=== PATIENT | female | born 1980 | race Caucasian/White ===

== ENCOUNTER 2016-11-18 16:50 | Inpatient (IN) | payer OTHER ==
[~2016-11-18] VITALS: Ht 162.6 cm; Wt 74.8 kg
[2016-11-18] MEDS ORDERED: fentaNYL 100 mcg/2 mL IV ONE ×2 (17:30→19:30)
[2016-11-18] MEDS ORDERED: Famotidine 20 MG/ 2ML VIAL IVP ONE (17:30)
--- NOTE | 2016-11-18 17:30 | Emergency Room Report ---
History of Present Illness General Chief Complaint: Abnormal Labs Source: Patient Present Illness HPI The patient presents with severe abdominal pain and chest pain that began at 2 AM. She's also been vomiting. She's had loose stools that have been dark in color. She's been taking Pepto-Bismol and Pepcid without any relief. She's seen by urgent care center to us stating that they felt that she needed a CT scan and labs. She EKG done by them nose normal. Pain 8/10 RUQ and somewhat epigastric. Urine was dark today. Menses started today. Moved bowels 3 times today = dark (taking Peptobismol). She's been ill intermittently for 2 months. This is been fevers and vomiting. She did not receive a flu shot. Travel to [place] in September. Uncertain if hepatitis vaccinations. 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 Last Menstrual Period: 11/16/2016 Now: No : 0 Para: 0 Reviewed Nursing Documentation: PMH: Agreed, PSxH: Agreed Nursing Documentation-PMH Past Medical History: No Stated History Review of Systems All Other Systems: negative except mentioned in HPI Physical Exam Vital Signs Date Time Temp Pulse Resp B/P Pulse Ox O2 Delivery O2 Flow Rate FiO2 11/18/16 17:03 97.5 75 14 133/89 100 Room Air Sp02 EP Interpretation: reviewed, normal General Appearance: well appearing, no apparent distress, GCS 15 Head: normocephalic Eyes: bilateral eye EOMI, bilateral eye PERRL, bilateral eye scleral icterus ENT: dry mucus membranes Neck: supple Respiratory: lungs clear, normal breath sounds Cardiovascular #1: regular rate, rhythm Cardiovascular #2: 2+ radial (R) Gastrointestinal: normal inspection, normal bowel sounds, no mass, non- distended, no rebound, guarding, tenderness - RUQ Musculoskeletal: back normal, gait/station normal, normal range of motion Neurologic: alert, oriented x3, grossly normal Psychiatric: mood/affect normal Skin: normal inspection, warm/dry Medical Decision Making Diagnostic Impression: Primary Impression: Acute cholecystitis Additional Impressions: Elevated liver function tests Dehydration Vomiting Qualified Codes: R11.2 - Nausea with vomiting, unspecified ER Course Patient with severe upper abdominal pain. Ddx: pancreatitis, GERD, cholelithiasis, cholecyctitis, PUD amongst others. Urgent evaluation with labs , CT abdomen. Treatment with IV hydration, analgesia. Consideration of hepatitis, cholecystitis, cholelithiasis with elevated LFTs and bili. CT suggests acute cholecystitis. Pain improved. Contact Dr. Tinoco for consultation. Admit med Dr. Patterson. Laboratory Tests Test 11/18/16 17:24 White Blood Count 7.6 K/UL (4.8-10.8) Red Blood Count 4.82 M/UL (4.20-5.40) Hemoglobin 14.5 G/DL (12.0-16.0) Hematocrit 43.4 % (37.0-47.0) Mean Corpuscular Volume 90 FL (80-99) Mean Corpuscular Hemoglobin 30.2 PG (27.0-31.0) Mean Corpuscular Hemoglobin Concent 33.5 G/DL (32.0-36.0) Red Cell Distribution Width 11.1 % (11.6-14.8) L Platelet Count 317 K/UL (150-450) Mean Platelet Volume 7.0 FL (6.5-10.1) Neutrophils (%) (Auto) 65.4 % (45.0-75.0) Lymphocytes (%) (Auto) 24.8 % (20.0-45.0) Monocytes (%) (Auto) 8.3 % (1.0-10.0) Eosinophils (%) (Auto) 0.7 % (0.0-3.0) Basophils (%) (Auto) 0.7 % (0.0-2.0) Prothrombin Time 10.3 SEC (9.30-11.50) Prothrombin Time INR 1.0 (0.9-1.1) PTT 26 SEC (23-33) Urine Color Brown Urine Appearance Clear Urine pH 5 (4.5-8.0) Urine Specific [place] 1.020 (1.005-1.035) Urine Protein 1+ (NEGATIVE) H Urine Glucose (UA) Negative (NEGATIVE) Urine Ketones 1+ (NEGATIVE) H Urine Occult Blood 1+ (NEGATIVE) H Urine Nitrite Negative (NEGATIVE) Urine Bilirubin 2+ (NEGATIVE) H Urine Ictotest Negative Urine Urobilinogen 4 MG/DL (0.0-1.0) H Urine Leukocyte Esterase 1+ (NEGATIVE) H Urine RBC 0-2 /HPF (0 - 2) Urine WBC 2-4 /HPF (0 - 2) Urine Squamous Epithelial Cells Few /LPF (NONE/OCC) Urine Bacteria Few /HPF (NONE) Urine HCG, Qualitative Negative Sodium Level 141 mEQ/L (135-145) Potassium Level 3.8 mEQ/L (3.4-4.9) Chloride Level 98 mEQ/L (98-107) Carbon Dioxide Level 25 mEQ/L (20-30) Anion Gap 18 (5-15) H Blood Urea Nitrogen 9 mg/dL (7-23) Creatinine 0.9 mg/dL (0.5-0.9) Estimate Glomerular Filtration Rate > 60 mL/min (>60) Glucose Level 106 mg/dL (74-106) Calcium Level 9.4 mg/dL (8.6-10.2) Total Bilirubin 2.7 mg/dL (0.0-1.2) H Direct Bilirubin 2.2 mg/dL (0.1-0.3) H Aspartate Amino Transferase (AST) 270 U/L (5-40) H Alanine Aminotransferase (ALT) 186 U/L (3-33) H Alkaline Phosphatase 160 U/L (35-104) H Total Protein 7.0 g/dL (6.6-8.7) Albumin 4.4 g/dL (3.5-5.2) Globulin 2.6 g/dL Albumin/Globulin Ratio 1.6 (1.0-2.7) Lipase 52 U/L (< 60) EKG Diagnostic Results Rate: normal Rhythm: NSR ST Segments: no acute changes Other Impression Outside EKG reviewed Rhythm Strip Diag. Results EP Interpretation: yes Rhythm: NSR, no PVC's, no ectopy CT/MRI/US Diagnostic Results CT/MRI/US Diagnostic Results : Imaging Test Ordered: abd/pelvis Impression gall bladder inflammation with probable gall stones. Impression: Distended gallbladder with stones, somewhat thick wall, some pericholecystic edema. Findings raise concern for acute cholecystitis. If there is high clinical suspicion, consider hepatobiliary nuclear scan to confirm Dilated extrahepatic bile ducts. Downstream obstruction not completely excludable. Correlate with liver function tests Appendix, suspect postsurgical Diverticulosis without evidence of diverticulitis Splenic low attenuation lesion, probably a cyst Bilateral L5 spondylolysis, minimal L5 on S1 spondylolisthesis Last Vital Signs Date Time Temp Pulse Resp B/P Pulse Ox O2 Delivery O2 Flow Rate FiO2 11/18/16 17:03 97.5 75 14 133/89 100 Room Air Status: improved Disposition: ADMITTED INPATIENT Condition: Serious Tin Nolasco M.D. Nov 18, 2016 17:30
[2016-11-18 17:48] LABS: BASOPHILS % (AUTO) 0.7 % (0.0-2.0); EOSINOPHILS % (AUTO) 0.7 % (0.0-3.0); LYMPHOCYTES % (AUTO) 24.8 % (20.0-45.0); MEAN CORPUSCULAR HEMOGLOBIN 30.2 PG (27.0-31.0); MEAN CORPUSCULAR HGB CONC 33.5 G/DL (32.0-36.0); MEAN CORPUSCULAR VOLUME 90 FL (80-99); MONOCYTES % (AUTO) 8.3 % (1.0-10.0); NEUTROPHILS % (AUTO) 65.4 % (45.0-75.0); PLATELET COUNT 317 K/UL (150-450); RED BLOOD COUNT 4.82 M/UL (4.20-5.40); RED CELL DISTRIBUTION WIDTH 11.1 % (11.6-14.8); WHITE BLOOD COUNT 7.6 K/UL (4.8-10.8)
[2016-11-18 17:50] LABS: APPEARANCE,URINE CLEAR; KETONES,URINE 1+ (NEGATIVE); LEUKOCYTE ESTERASE ,URINE 1+ (NEGATIVE); NITRITE,URINE NEGATIVE (NEGATIVE); PH,URINE 5 (4.5-8.0); PROTEIN,URINE 1+ (NEGATIVE); UROBILINOGEN,URINE 4 MG/DL (0.0-1.0)
[2016-11-18 17:59] LABS: PROTHROMBIN TIME 10.3 SEC (9.30-11.50)
[2016-11-18 18:03] LABS: ALANINE AMINOTRANSFERASE 186 U/L (3-33); ALBUMIN/GLOBULIN RATIO 1.6 (1.0-2.7); ANION GAP 18 (5-15); ASPARTATE AMINO TRANSFERASE 270 U/L (5-40); CALCIUM 9.4 mg/dL (8.6-10.2); CARBON DIOXIDE 25 mEQ/L (20-30); CHLORIDE 98 mEQ/L (98-107); CREATININE 0.9 mg/dL (0.5-0.9); GLOMERULAR FILTRATION RATE > 60 mL/min (>60); HEMOLYSIS 0; LIPASE 52 U/L (< 60); POTASSIUM 3.8 mEQ/L (3.4-4.9); SODIUM 141 mEQ/L (135-145)
[2016-11-18 18:16] LABS: BILIRUBIN,DIRECT 2.2 mg/dL (0.1-0.3)
[2016-11-18 18:21] LABS: BACTERIA,URINE FEW /HPF; ICTOTEST NEGATIVE; RBC,URINE 0-2 /HPF (0 - 2); SQUAMOUS EPITHELIAL CELL,UR FEW /LPF (NONE/OCC)
[2016-11-18 18:24] VITALS: BP 121/76
[2016-11-18] MEDS ORDERED: metroNIDAZOLE 500mg 100 ML IVPB ONE (19:30)
[2016-11-18] MEDS ORDERED: Cefepime HCl 1 GM in D5W 55 ML IVPB ONE (19:30)
[2016-11-18] MEDS ORDERED: Cefepime 1gm vial ONE (19:59)
[2016-11-18] MEDS ORDERED: BUPROPION HCL75 MG PO (20:47)
[2016-11-18] MEDS ORDERED: LEVOTHYROXINE75 MCG ORAL (20:47)
[2016-11-18 20:59] VITALS: BP 114/72
[2016-11-18] MEDS ORDERED: Miralax 17gm pkt ORAL PRN (22:00)
[2016-11-18] MEDS ORDERED: Mylanta II UD 30ml ORAL PRN (22:00)
[2016-11-18] MEDS ORDERED: Nitroglycerin Subl 0.4mg tab (Bottle Of 25) SL PRN (22:15)
[2016-11-18] MEDS ORDERED: D5 1/2NS 1,000 ML IV SCH (22:30)
[2016-11-18] MEDS: Piperacillin/Tazobactam 3.375 GM in NS 110 ML IVPB SCH (22:36)
[2016-11-19] VITALS: BP 117/76
[2016-11-19] MEDS: Morphine Sulfate 2mg/ml Inj IVP PRN ×5 (00:25→21:19)
[2016-11-19 04:00] VITALS: BP 114/74
[2016-11-19 05:37] LABS: BASOPHILS % (AUTO) 0.8 % (0.0-2.0); MEAN CORPUSCULAR HEMOGLOBIN 31.3 PG (27.0-31.0); MEAN CORPUSCULAR HGB CONC 34.1 G/DL (32.0-36.0); MEAN CORPUSCULAR VOLUME 92 FL (80-99); MEAN PLATELET VOLUME 7.3 FL (6.5-10.1); MONOCYTES % (AUTO) 10.4 % (1.0-10.0); NEUTROPHILS % (AUTO) 47.9 % (45.0-75.0); PLATELET COUNT 243 K/UL (150-450); RED BLOOD COUNT 3.95 M/UL (4.20-5.40); RED CELL DISTRIBUTION WIDTH 11.3 % (11.6-14.8); WHITE BLOOD COUNT 5.5 K/UL (4.8-10.8)
[2016-11-19] MEDS: Piperacillin/Tazobactam 3.375 GM in NS 110 ML IVPB SCH ×3 (05:43→21:19)
[2016-11-19 06:05] LABS: ALANINE AMINOTRANSFERASE 240 U/L (3-33); ALBUMIN/GLOBULIN RATIO 1.7 (1.0-2.7); AMYLASE 31 U/L (10-110); ANION GAP 14 (5-15); ASPARTATE AMINO TRANSFERASE 300 U/L (5-40); CALCIUM 8.5 mg/dL (8.6-10.2); CARBON DIOXIDE 26 mEQ/L (20-30); CHLORIDE 99 mEQ/L (98-107); CREATININE 0.8 mg/dL (0.5-0.9); GLOMERULAR FILTRATION RATE > 60 mL/min (>60); HEMOLYSIS 2; LIPASE 39 U/L (< 60); POTASSIUM 3.7 mEQ/L (3.4-4.9); SODIUM 139 mEQ/L (135-145); TOTAL PROTEIN 5.7 g/dL (6.6-8.7)
[2016-11-19 06:21] LABS: BILIRUBIN,DIRECT 1.6 mg/dL (0.1-0.3)
[2016-11-19] MEDS: D5 1/2NS 1,000 ML IV SCH ×2 (07:00→14:27)
--- NOTE | 2016-11-19 07:01 | Consultation ---
History of Present Illness General Date patient seen: Nov 19, 2016 Chief Complaint: Abnormal Labs Present Illness HPI 36 F presented to ED complaining of abdominal pain. States that for a few months now she has had intermittent abdominal pain. Yesterday pain worsened. Feels like pain was generalized abdominal pain but mostly concentrated to the RUQ with radiation to her right upper back. Pain associated with nausea and emesis ( non bloody). Given these symptoms she came to ED for evaluation. Noted to have elevated t bili of 2.7. CT with gallstones. Surgery called to evaluate. Currently states pain slowly resolving. does not have n/v at this time. Allergies: Coded Allergies: SULFA (SULFONAMIDE ANTIBIOTICS) (Unverified Allergy, Unknown, 11/18/16) Uncoded Allergies: SULFA (Allergy, Unknown, Hives, 11/18/16) Medication History Scheduled Bupropion Hcl* (Bupropion Hcl*), 75 MG PO BID, (Reported) Levothyroxine Sodium* (Levothyroxine Sodium*), 75 MCG ORAL DAILY, (Reported) Patient History History Provided By: Patient Healthcare decision maker Resuscitation status Full Code Advanced Directive on File Past Medical/Surgical History Past Medical/Surgical History: (1) History of appendectomy (2) Hypothyroidism (3) Acute cholecystitis Review of Systems Constitutional: Denies: chills, fever, malaise, no symptoms, other, see HPI, sweats, weakness Eye: Denies: acuity changes, blurred vision, discharge, double vision, eye pain , no symptoms, nose congestion, nose pain, other, see HPI, tearing ENT: Denies: ear discharge, ear pain, hearing loss, mouth pain, nasal discharge , no symptoms, nose congestion, nose pain, other, see HPI, throat pain, throat swelling Respiratory: Denies: BYRNES, cough, no symptoms, orthopnea, other, see HPI, shortness of breath, sputum, stridor, wheezing Cardiovascular: Denies: PND, chest pain, edema, no symptoms, other, palpitations, see HPI, syncope Gastrointestinal: Reports: abdominal pain, nausea, see HPI, vomiting Genitourinary: Denies: discharge, dysuria, frequency, hematuria, incontinence, no symptoms, other, pain, retention, see HPI, urgency, vag bleed/dc Musculoskeletal: Denies: back pain, gout, joint pain, joint swelling, muscle pain, muscle stiffness, no symptoms, other, see HPI Skin: Denies: change in color, change in hair/nails, dryness, lesions, no symptoms, other, rash, see HPI Psychiatric: Denies: HI, SI, anxiety, depressed feelings, emotional problems, hallucinations, no symptoms, other, prior hx, see HPI Neurological: Denies: dizziness, focal weakness, headache, no symptoms, numbness, other, paresthesia, see HPI, seizure, syncope, tingling, tremors Endocrine: Denies: excessive sweating, flushing, increased thirst, increased urine, intolerance to temperature, no symptoms, other, see HPI, unexplained weight loss Hematologic/Lymphatic: Denies: anemia, blood clots, diathesis, easy bleeding, easy bruising, no symptoms, other, see HPI, swollen glands All Other Systems: negative except mentioned in HPI Physical Exam General Appearance: WD/WN, no apparent distress, alert Lines, tubes and drains: peripheral HEENT: normocephalic, atraumatic Neck: non-tender, normal alignment Respiratory/Chest: lungs clear, normal breath sounds Cardiovascular/Chest: normal peripheral pulses, normal rate Abdomen: normal bowel sounds, non tender, soft, no organomegaly, no mass Extremities: normal range of motion, non-tender Skin Exam: normal pigmentation Neurologic: sex therapist II-XII grossly normal, no motor/sensory deficits, alert, oriented x 3, responsive Last 24 Hour Vital Signs Date Time Temp Pulse Resp B/P Pulse Ox O2 Delivery O2 Flow Rate FiO2 11/19/16 04:00 97.6 60 18 114/74 99 Room Air 11/19/16 00:00 96.6 62 18 117/76 98 Room Air 11/18/16 21:03 98.2 52 14 114/72 100 Room Air 11/18/16 20:59 98.2 52 14 114/72 100 Room Air 11/18/16 18:27 97.9 11/18/16 18:24 97.9 60 15 121/76 100 Room Air 11/18/16 17:03 97.5 75 14 133/89 100 Room Air Intake and Output 11/18/16 11/19/16 19:00 07:00 Intake Total 2000 ml Balance 2000 ml Intake IV Total 1000 ml Other 1000 ml # Voids 1 Laboratory Tests Test 11/18/16 17:24 11/19/16 04:05 White Blood Count 7.6 K/UL (4.8-10.8) 5.5 K/UL (4.8-10.8) Red Blood Count 4.82 M/UL (4.20-5.40) 3.95 M/UL (4.20-5.40) L Hemoglobin 14.5 G/DL (12.0-16.0) 12.4 G/DL (12.0-16.0) Hematocrit 43.4 % (37.0-47.0) 36.2 % (37.0-47.0) L Mean Corpuscular Volume 90 FL (80-99) 92 FL (80-99) Mean Corpuscular Hemoglobin 30.2 PG (27.0-31.0) 31.3 PG (27.0-31.0) H Mean Corpuscular Hemoglobin Concent 33.5 G/DL (32.0-36.0) 34.1 G/DL (32.0-36.0) Red Cell Distribution Width 11.1 % (11.6-14.8) L 11.3 % (11.6-14.8) L Platelet Count 317 K/UL (150-450) 243 K/UL (150-450) Mean Platelet Volume 7.0 FL (6.5-10.1) 7.3 FL (6.5-10.1) Neutrophils (%) (Auto) 65.4 % (45.0-75.0) 47.9 % (45.0-75.0) Lymphocytes (%) (Auto) 24.8 % (20.0-45.0) 39.0 % (20.0-45.0) Monocytes (%) (Auto) 8.3 % (1.0-10.0) 10.4 % (1.0-10.0) H Eosinophils (%) (Auto) 0.7 % (0.0-3.0) 2.0 % (0.0-3.0) Basophils (%) (Auto) 0.7 % (0.0-2.0) 0.8 % (0.0-2.0) Prothrombin Time 10.3 SEC (9.30-11.50) Prothromb Time International Ratio 1.0 (0.9-1.1) Activated Partial Thromboplast Time 26 SEC (23-33) 26 SEC (23-33) Urine Color Brown Urine Appearance Clear Urine pH 5 (4.5-8.0) Urine Specific [place] 1.020 (1.005-1.035) Urine Protein 1+ (NEGATIVE) H Urine Glucose (UA) Negative (NEGATIVE) Urine Ketones 1+ (NEGATIVE) H Urine Occult Blood 1+ (NEGATIVE) H Urine Nitrite Negative (NEGATIVE) Urine Bilirubin 2+ (NEGATIVE) H Urine Ictotest Negative Urine Urobilinogen 4 MG/DL (0.0-1.0) H Urine Leukocyte Esterase 1+ (NEGATIVE) H Urine RBC 0-2 /HPF (0 - 2) Urine WBC 2-4 /HPF (0 - 2) Urine Squamous Epithelial Cells Few /LPF (NONE/OCC) Urine Bacteria Few /HPF (NONE) Urine HCG, Qualitative Negative Sodium Level 141 mEQ/L (135-145) 139 mEQ/L (135-145) Potassium Level 3.8 mEQ/L (3.4-4.9) 3.7 mEQ/L (3.4-4.9) Chloride Level 98 mEQ/L (98-107) 99 mEQ/L (98-107) Carbon Dioxide Level 25 mEQ/L (20-30) 26 mEQ/L (20-30) Anion Gap 18 (5-15) H 14 (5-15) Blood Urea Nitrogen 9 mg/dL (7-23) 7 mg/dL (7-23) Creatinine 0.9 mg/dL (0.5-0.9) 0.8 mg/dL (0.5-0.9) Estimat Glomerular Filtration Rate > 60 mL/min (>60) > 60 mL/min (>60) Glucose Level 106 mg/dL (74-106) 129 mg/dL (74-106) H Calcium Level 9.4 mg/dL (8.6-10.2) 8.5 mg/dL (8.6-10.2) L Total Bilirubin 2.7 mg/dL (0.0-1.2) H 2.3 mg/dL (0.0-1.2) H Direct Bilirubin 2.2 mg/dL (0.1-0.3) H 1.6 mg/dL (0.1-0.3) H Aspartate Amino Transf (AST/SGOT) 270 U/L (5-40) H 300 U/L (5-40) H Alanine Aminotransferase (ALT/SGPT) 186 U/L (3-33) H 240 U/L (3-33) H Alkaline Phosphatase 160 U/L (35-104) H 164 U/L (35-104) H Total Protein 7.0 g/dL (6.6-8.7) 5.7 g/dL (6.6-8.7) L Albumin 4.4 g/dL (3.5-5.2) 3.6 g/dL (3.5-5.2) Globulin 2.6 g/dL 2.1 g/dL Albumin/Globulin Ratio 1.6 (1.0-2.7) 1.7 (1.0-2.7) Lipase 52 U/L (< 60) 39 U/L (< 60) Amylase Level 31 U/L (10-110) Height (Feet): 5 Height (Inches): 4.00 Weight (Pounds): 165 Medications Current Medications Medications (Trade) Dose Ordered Sig/Edy Route PRN Reason Start Time Stop Time Status Last Admin Dose Admin Acetaminophen (Tylenol) 650 mg Q4H PRN ORAL T>100.5 11/18/16 22:00 12/18/16 21:59 Al Hydroxide/Mg Hydroxide (Mylanta II) 30 ml Q6H PRN ORAL dyspepsia 11/18/16 22:00 12/18/16 21:59 Bupropion HCl (Wellbutrin) 75 mg BID ORAL 11/19/16 09:00 12/19/16 08:59 Dextrose STAT PRN IV Hypoglycemia 11/18/16 22:00 12/18/16 21:59 Dextrose/Sodium Chloride (D5 0.45% NS) 1,000 ml @ 75 mls/hr [id number] IV 11/18/16 22:30 12/18/16 22:29 11/18/16 22:28 Dextrose/Sodium Chloride (D5 0.45% NS) 1,000 ml @ 75 mls/hr [id number] IV 11/19/16 07:00 12/19/16 06:59 UNV Diphenhydramine HCl (Benadryl) 25 mg Q6H PRN ORAL Itching/Pruritis 11/18/16 22:00 12/18/16 21:59 Heparin Sodium (Porcine) (Heparin 5000 units/ml) 5,000 units EVERY 12 HOURS SUBQ 11/19/16 09:00 12/19/16 08:59 Levothyroxine Sodium 75 mcg 75 mcg ACBREAKFAST ORAL 11/19/16 06:30 12/19/16 06:29 11/19/16 06:17 Morphine Sulfate (Morphine Sulfate) 2 mg Q4H PRN IVP Severe Pain (Pain Scale 7-10) 11/18/16 22:00 11/25/16 21:59 11/19/16 06:21 Nitroglycerin (Ntg) 0.4 mg Q5MIN X 3 DOSES PRN SL Prn Chest Pain 11/18/16 22:15 12/18/16 22:14 Ondansetron HCl (Zofran) 4 mg Q6H PRN IVP Nausea & Vomiting 11/18/16 22:00 12/18/16 21:59 Piperacillin Sod/ Tazobactam Sod 3.375 gm/Sodium Chloride 110 ml @ 27.5 mls/hr EVERY 8 HOURS IVPB 11/18/16 23:30 11/25/16 23:29 11/19/16 05:43 Polyethylene Glycol (Miralax) 17 gm HSPRN PRN ORAL Constipation 11/18/16 22:00 12/18/16 21:59 Temazepam (Restoril) 15 mg HSPRN PRN ORAL Insomnia 11/18/16 22:00 11/25/16 21:59 Assessment/Plan Problem List: (1) Acute cholecystitis ICD Codes: K81.0 - Acute cholecystitis SNOMED: [id number] Assessment/Plan 36 F choledocholithiasis. Afebrile, HD stable, wbc normal, exam benign currently, t bili upon admission 2.7, radiology with cholelithiasis. -recommend GI consult for possible ERCP? -follow up final reads of radiological studies -trend labs -will follow with you. Ignacio Hart Nov 19, 2016 07:01
[2016-11-19 07:38] VITALS: BP 109/73
[2016-11-19] MEDS: BuPROPion 75mg Tab ORAL SCH ×2 (08:20→18:19)
[2016-11-19] MEDS: Heparin 5000 units/ml inj SUBQ SCH ×2 (08:26→21:26)
--- NOTE | 2016-11-19 09:28 | Diagnostic Imaging Report ---
Clinical Indication: Abdominal pain Technique: No oral contrast utilized, per emergency room physician request IV administration nonionic contrast. Venous phase spiral acquisition obtained through the abdomen and pelvis. Multiplanar reconstructions were generated. Total dose length product 864 mGycm. CTDIvol(s) 17 mGy Comparison: None Findings: The appendix is not clearly demonstrated, possibly surgically absent as there appears to be surgical clotilde in the region of the cecum. There is colonic diverticulosis. No evidence of diverticulitis. No small bowel distention. No free or loculated intraperitoneal air or fluid. Graph gallbladder contains gallstones. Is distended and thick walled. There is no pericholecystic inflammatory change, but there may be mild gallbladder wall edema. The common bile duct is dilated, measuring 14 mm diameter. No definite distal radiopaque calculus, but a subtle calculus at the ampulla cannot be completely excluded. The liver demonstrates prominent periportal fat which is somewhat edematous. No focal abnormality. The pancreas is unremarkable. The spleen demonstrates a 1 cm lower pole cyst low-attenuation lesion, too small to characterize, probably a cyst. Adrenals, kidneys are unremarkable. No mesenteric or retroperitoneal mass or adenopathy. No pelvic mass or adenopathy. The included lung bases are clear. The bones demonstrate bilateral L5 spondylolysis. Minimal grade 1 L5 on S1 spondylolisthesis is noted. Impression: Distended gallbladder with stones, somewhat thick wall, some pericholecystic edema. Findings raise concern for acute cholecystitis. If there is high clinical suspicion, consider hepatobiliary nuclear scan to confirm Dilated extrahepatic bile ducts. Downstream obstruction not completely excludable. Correlate with liver function tests Appendix, suspect postsurgical Diverticulosis without evidence of diverticulitis Splenic low attenuation lesion, probably a cyst Bilateral L5 spondylolysis, minimal L5 on S1 spondylolisthesis This agrees with the preliminary interpretation provided overnight by Dr. Celestin The CT scanner at [facility] is accredited by the [employer] and the scans are performed using protocols designed to limit radiation exposure to as low as reasonably achievable to attain images of sufficient resolution adequate for diagnostic evaluation.
[2016-11-19 11:40] VITALS: BP 110/75
--- NOTE | 2016-11-19 14:20 | Diagnostic Imaging Report ---
Indication: Abdominal pain, history of gallstones Technique: Coronal and axial single shot fast spin-echo breath-hold, axial T2 FRFSE, 2-D thick slab MRCP, AXIAL 2-D FIESTA fat saturated, axial 3-D dual echo breath-hold, water weighted axial LAVA FLEX, revealed 3-D MRCP images were obtained of the abdomen. MIP reconstructions were generated of the bile ducts Comparison: Reference made to CT abdomen and pelvis dated 11/18/2016 Findings: There is some image degradation due to respiratory motion artifact. The gallbladder contains multiple large gallstones. There is some edema of the gallbladder wall in the neck. Is also suggestion of thickening of the gallbladder wall of the fundus on the axial single shot fast spin-echo images. Minimal if any intrahepatic biliary ductal dilatation. The common hepatic duct measures 9 mm diameter, and the common bile duct measures 7 mm diameter. There is abrupt termination of the, bile duct at the level of the ampulla. There is questionably some signal void at the ampulla which could represent a calculus. This is best appreciated, if real, on the axial single shot fast spin-echo images. There are also questionably filling defects within the common bile duct. The liver is unremarkable. The spleen demonstrates a cyst in the lower pole. The pancreas, adrenals, kidneys are unremarkable. Impression: Cholelithiasis. Gallbladder wall edema raises concern for acute cholecystitis. Consider hepatobiliary nuclear scan for further evaluation as clinically indicated Mild extrahepatic biliary ductal dilatation. Questionable common bile duct ampullary filling defects on a few sequences, if real could indicate choledocholithiasis. Correlate with liver function tests, consider ERCP if there is high clinical suspicion Incidental finding of lower pole splenic cyst
--- NOTE | 2016-11-19 14:38 | GI Initial Consult Note ---
History of Present Illness General Date patient seen: Nov 19, 2016 Time patient seen: 11:00 Reason for Hospitalization: Abnormal Labs Referring physician: LANE CHIRINOS Reason for Consultation: CHOLECYSTITIS Present Illness HPI The patient presents with severe abdominal pain and chest pain that began at 2 AM. She's also been vomiting. She's had loose stools that have been dark in color. She's been taking Pepto-Bismol and Pepcid without any relief. She's seen by urgent care center to us stating that they felt that she needed a CT scan and labs. She EKG done by them nose normal. Pain 8/10 RUQ and somewhat epigastric. Urine was dark today. Menses started today. Moved bowels 3 times today = dark (taking Peptobismol). She's been ill intermittently for 2 months. This is been fevers and vomiting. She did not receive a flu shot. Travel to [place] in September. Uncertain if hepatitis vaccinations. GI CONSULT: HPI as noted above. Pt seen on floor, awake A&Ox4 NAD c/o mid abdominal pain that radiates to the back. Denies any medical history. She presents with cholecystitis shown on APCT and abnormal LFTs with elevated total bilirubin. Surgical consulted. Possible choledocholithiasis on MRI, see full report below. No known history of any endoscopic procedures. Procedure: MRI Abdomen no Contrast Indication: Abdominal pain, history of gallstones Findings: There is some image degradation due to respiratory motion artifact. The gallbladder contains multiple large gallstones. There is some edema of the gallbladder wall in the neck. Is also suggestion of thickening of the gallbladder wall of the fundus on the axial single shot fast spin-echo images. Minimal if any intrahepatic biliary ductal dilatation. The common hepatic duct measures 9 mm diameter, and the common bile duct measures 7 mm diameter. There is abrupt termination of the, bile duct at the level of the ampulla. There is questionably some signal void at the ampulla which could represent a calculus. This is best appreciated, if real, on the axial single shot fast spin-echo images. There are also questionably filling defects within the common bile duct. The liver is unremarkable. The spleen demonstrates a cyst in the lower pole. The pancreas, adrenals, kidneys are unremarkable. Impression: Cholelithiasis. Gallbladder wall edema raises concern for acute cholecystitis. Consider hepatobiliary nuclear scan for further evaluation as clinically indicated Mild extrahepatic biliary ductal dilatation. Questionable common bile duct ampullary filling defects on a few sequences, if real could indicate choledocholithiasis. Correlate with liver function tests, consider ERCP if there is high clinical suspicion Incidental finding of lower pole splenic cyst Home Meds Reported Medications Levothyroxine Sodium* (LEVOTHYROXINE SODIUM*) 75 Mcg Tablet, 75 MCG ORAL DAILY, TAB Take in the morning on an empty stomach, at least 30 minutes before food. 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 Last Menstrual Period: 11/16/2016 Now: No : 0 Para: 0 Reviewed Nursing Documentation: PMH: Agreed, PSxH: Agreed Nursing Documentation-PMH Past Medical History: No Stated History Review of Systems All Other Systems: negative except mentioned in HPI Physical Exam Vital Signs Date Time Temp Pulse Resp B/P Pulse Ox O2 Delivery O2 Flow Rate FiO2 11/18/16 17:03 97.5 75 14 133/89 100 Room Air Sp02 EP Interpretation: reviewed Labs Laboratory Tests Test 11/18/16 17:24 11/19/16 04:05 White Blood Count 7.6 K/UL (4.8-10.8) 5.5 K/UL (4.8-10.8) Red Blood Count 4.82 M/UL (4.20-5.40) 3.95 M/UL (4.20-5.40) L Hemoglobin 14.5 G/DL (12.0-16.0) 12.4 G/DL (12.0-16.0) Hematocrit 43.4 % (37.0-47.0) 36.2 % (37.0-47.0) L Mean Corpuscular Volume 90 FL (80-99) 92 FL (80-99) Mean Corpuscular Hemoglobin 30.2 PG (27.0-31.0) 31.3 PG (27.0-31.0) H Mean Corpuscular Hemoglobin Concent 33.5 G/DL (32.0-36.0) 34.1 G/DL (32.0-36.0) Red Cell Distribution Width 11.1 % (11.6-14.8) L 11.3 % (11.6-14.8) L Platelet Count 317 K/UL (150-450) 243 K/UL (150-450) Mean Platelet Volume 7.0 FL (6.5-10.1) 7.3 FL (6.5-10.1) Neutrophils (%) (Auto) 65.4 % (45.0-75.0) 47.9 % (45.0-75.0) Lymphocytes (%) (Auto) 24.8 % (20.0-45.0) 39.0 % (20.0-45.0) Monocytes (%) (Auto) 8.3 % (1.0-10.0) 10.4 % (1.0-10.0) H Eosinophils (%) (Auto) 0.7 % (0.0-3.0) 2.0 % (0.0-3.0) Basophils (%) (Auto) 0.7 % (0.0-2.0) 0.8 % (0.0-2.0) Prothrombin Time 10.3 SEC (9.30-11.50) Prothromb Time International Ratio 1.0 (0.9-1.1) Activated Partial Thromboplast Time 26 SEC (23-33) 26 SEC (23-33) Urine Color Brown Urine Appearance Clear Urine pH 5 (4.5-8.0) Urine Specific [place] 1.020 (1.005-1.035) Urine Protein 1+ (NEGATIVE) H Urine Glucose (UA) Negative (NEGATIVE) Urine Ketones 1+ (NEGATIVE) H Urine Occult Blood 1+ (NEGATIVE) H Urine Nitrite Negative (NEGATIVE) Urine Bilirubin 2+ (NEGATIVE) H Urine Ictotest Negative Urine Urobilinogen 4 MG/DL (0.0-1.0) H Urine Leukocyte Esterase 1+ (NEGATIVE) H Urine RBC 0-2 /HPF (0 - 2) Urine WBC 2-4 /HPF (0 - 2) Urine Squamous Epithelial Cells Few /LPF (NONE/OCC) Urine Bacteria Few /HPF (NONE) Urine HCG, Qualitative Negative Sodium Level 141 mEQ/L (135-145) 139 mEQ/L (135-145) Potassium Level 3.8 mEQ/L (3.4-4.9) 3.7 mEQ/L (3.4-4.9) Chloride Level 98 mEQ/L (98-107) 99 mEQ/L (98-107) Carbon Dioxide Level 25 mEQ/L (20-30) 26 mEQ/L (20-30) Anion Gap 18 (5-15) H 14 (5-15) Blood Urea Nitrogen 9 mg/dL (7-23) 7 mg/dL (7-23) Creatinine 0.9 mg/dL (0.5-0.9) 0.8 mg/dL (0.5-0.9) Estimat Glomerular Filtration Rate > 60 mL/min (>60) > 60 mL/min (>60) Glucose Level 106 mg/dL (74-106) 129 mg/dL (74-106) H Calcium Level 9.4 mg/dL (8.6-10.2) 8.5 mg/dL (8.6-10.2) L Total Bilirubin 2.7 mg/dL (0.0-1.2) H 2.3 mg/dL (0.0-1.2) H Direct Bilirubin 2.2 mg/dL (0.1-0.3) H 1.6 mg/dL (0.1-0.3) H Aspartate Amino Transf (AST/SGOT) 270 U/L (5-40) H 300 U/L (5-40) H Alanine Aminotransferase (ALT/SGPT) 186 U/L (3-33) H 240 U/L (3-33) H Alkaline Phosphatase 160 U/L (35-104) H 164 U/L (35-104) H Total Protein 7.0 g/dL (6.6-8.7) 5.7 g/dL (6.6-8.7) L Albumin 4.4 g/dL (3.5-5.2) 3.6 g/dL (3.5-5.2) Globulin 2.6 g/dL 2.1 g/dL Albumin/Globulin Ratio 1.6 (1.0-2.7) 1.7 (1.0-2.7) Lipase 52 U/L (< 60) 39 U/L (< 60) Amylase Level 31 U/L (10-110) General Appearance: well appearing, no apparent distress, alert Head: normocephalic EENT: normal ENT inspection Neck: full range of motion, supple Respiratory: normal breath sounds, no respiratory distress Cardiovascular: normal rate Gastrointestinal: normal inspection, non tender, soft Musculoskeletal: normal inspection Current Medications Current Medications Medications (Trade) Dose Ordered Sig/Edy Route PRN Reason Start Time Stop Time Status Last Admin Dose Admin Acetaminophen (Tylenol) 650 mg Q4H PRN ORAL T>100.5 11/18/16 22:00 12/18/16 21:59 11/19/16 08:20 Al Hydroxide/Mg Hydroxide (Mylanta II) 30 ml Q6H PRN ORAL dyspepsia 11/18/16 22:00 12/18/16 21:59 Bupropion HCl (Wellbutrin) 75 mg BID ORAL 11/19/16 09:00 12/19/16 08:59 11/19/16 08:20 Dextrose STAT PRN IV Hypoglycemia 11/18/16 22:00 12/18/16 21:59 Dextrose/Sodium Chloride (D5 0.45% NS) 1,000 ml @ 75 mls/hr [id number] IV 11/19/16 07:00 12/19/16 06:59 11/19/16 14:27 Diphenhydramine HCl (Benadryl) 25 mg Q6H PRN ORAL Itching/Pruritis 11/18/16 22:00 12/18/16 21:59 Heparin Sodium (Porcine) (Heparin 5000 units/ml) 5,000 units EVERY 12 HOURS SUBQ 11/19/16 09:00 12/19/16 08:59 11/19/16 08:26 Levothyroxine Sodium (Synthroid) 75 mcg ACBREAKFAST ORAL 11/19/16 06:30 12/19/16 06:29 11/19/16 06:17 Morphine Sulfate (Morphine Sulfate) 2 mg Q4H PRN IVP Severe Pain (Pain Scale 7-10) 11/18/16 22:00 11/25/16 21:59 11/19/16 11:05 Nitroglycerin (Ntg) 0.4 mg Q5MIN X 3 DOSES PRN SL Prn Chest Pain 11/18/16 22:15 12/18/16 22:14 Ondansetron HCl (Zofran) 4 mg Q4H PRN IVP Nausea & Vomiting 11/19/16 14:00 12/19/16 13:59 Piperacillin Sod/ Tazobactam Sod 3.375 gm/Sodium Chloride 110 ml @ 27.5 mls/hr EVERY 8 HOURS IVPB 11/18/16 23:30 11/25/16 23:29 11/19/16 14:07 Polyethylene Glycol (Miralax) 17 gm HSPRN PRN ORAL Constipation 11/18/16 22:00 12/18/16 21:59 Temazepam (Restoril) 15 mg HSPRN PRN ORAL Insomnia 11/18/16 22:00 11/25/16 21:59 GI: Plan Problems: (1) Choledocholithiasis (2) History of appendectomy (3) Hypothyroidism (4) Acute cholecystitis Plan APCT reviewed >> Distended gallbladder with stones, somewhat thick wall, some pericholecystic edema. Findings raise concern for acute cholecystitis. MRCP reviewed >> Mild extrahepatic biliary ductal dilatation. Questionable common bile duct ampullary filling defects on a few sequences, if real could indicate choledocholithiasis. - total bilirubin elevation surgical recs >> possible cholecystectomy pt scheduled for ERCP tuesday - regular diet, NPO @ [facility] on Tuesday abx H2 repeat LFTs fu labs Discussed with Dr. Solomon. Thank you for referring this patient, we will follow. Jaimee Dumont N.P. Nov 19, 2016 14:38
[2016-11-19] MEDS ORDERED: Tubing IV Secondary IV ONE (15:13)
[2016-11-19] MEDS ORDERED: D5 1/2NS 1000ml IV ONE (15:13)
[2016-11-19] MEDS ORDERED: NS 275ml ONE (15:13)
[2016-11-19 15:54] VITALS: BP 131/73
--- NOTE | 2016-11-19 16:33 | Consultation ---
History of Present Illness General Date patient seen: Nov 19, 2016 Chief Complaint: difficulty with breathing Referring physician: LANE CHIRINOS Reason for Consultation: dyspnea and cholecystitis abnormal labs Present Illness HPI 36 yo fem with pmhx she denies any tobacco smoking or alcohol use. 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 Preliminary studies have demonstrated cholecystitis however lung [place] are clear of any infiltrate and effusion. Supplemental O2 as needed for SOB and recommending at this point in the context of pleuritic chest pain most likely secondary to acute cholecystitis to follow up CXR if the dyspnea does not improve with resolution of underlying gall bladder disease. Allergies: Coded Allergies: SULFA (SULFONAMIDE ANTIBIOTICS) (Unverified Allergy, Unknown, 11/18/16) Uncoded Allergies: SULFA (Allergy, Unknown, Hives, 11/18/16) Medication History Scheduled Bupropion Hcl* (Bupropion Hcl*), 75 MG PO BID, (Reported) Levothyroxine Sodium* (Levothyroxine Sodium*), 75 MCG ORAL DAILY, (Reported) Patient History Healthcare decision maker Resuscitation status Full Code Advanced Directive on File Past Medical/Surgical History Past Medical/Surgical History: (1) Hypothyroidism (2) Choledocholithiasis (3) Major depression (4) RUQ abdominal pain (5) Nausea & vomiting (6) Elevated liver function tests Review of Systems Constitutional: Reports: chills, malaise, weakness Respiratory: Reports: shortness of breath Cardiovascular: Reports: chest pain Gastrointestinal: Reports: abdominal pain, nausea, vomiting Physical Exam General Appearance: moderate distress Lines, tubes and drains: peripheral HEENT: normocephalic, atraumatic, PERRL Neck: non-tender, normal alignment, supple Respiratory/Chest: no respiratory distress, respiratory distress, accessory muscle use Breasts: no masses Cardiovascular/Chest: normal peripheral pulses, normal rate, regular rhythm, no JVD Abdomen: hypoactive bowel sounds, distended, guarding, rebound, tender, mass Genitourinary/Rectal: normal genital exam, normal rectal exam Extremities: normal range of motion, non-tender, normal inspection Skin Exam: palled 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, no motor/sensory deficits Last 24 Hour Vital Signs Date Time Temp Pulse Resp B/P Pulse Ox O2 Delivery O2 Flow Rate FiO2 11/19/16 15:54 97.5 61 18 131/73 97 Room Air 11/19/16 11:40 97.2 55 16 110/75 98 Room Air 11/19/16 07:38 97.3 64 16 109/73 99 Room Air 11/19/16 04:00 97.6 60 18 114/74 99 Room Air 11/19/16 00:00 96.6 62 18 117/76 98 Room Air 11/18/16 21:03 98.2 52 14 114/72 100 Room Air 11/18/16 20:59 98.2 52 14 114/72 100 Room Air 11/18/16 18:27 97.9 11/18/16 18:24 97.9 60 15 121/76 100 Room Air 11/18/16 17:03 97.5 75 14 133/89 100 Room Air Intake and Output 11/18/16 11/19/16 19:00 07:00 Intake Total 2000 ml Balance 2000 ml Intake IV Total 1000 ml Other 1000 ml # Voids 1 Laboratory Tests Test 11/18/16 17:24 11/19/16 04:05 White Blood Count 7.6 K/UL (4.8-10.8) 5.5 K/UL (4.8-10.8) Red Blood Count 4.82 M/UL (4.20-5.40) 3.95 M/UL (4.20-5.40) L Hemoglobin 14.5 G/DL (12.0-16.0) 12.4 G/DL (12.0-16.0) Hematocrit 43.4 % (37.0-47.0) 36.2 % (37.0-47.0) L Mean Corpuscular Volume 90 FL (80-99) 92 FL (80-99) Mean Corpuscular Hemoglobin 30.2 PG (27.0-31.0) 31.3 PG (27.0-31.0) H Mean Corpuscular Hemoglobin Concent 33.5 G/DL (32.0-36.0) 34.1 G/DL (32.0-36.0) Red Cell Distribution Width 11.1 % (11.6-14.8) L 11.3 % (11.6-14.8) L Platelet Count 317 K/UL (150-450) 243 K/UL (150-450) Mean Platelet Volume 7.0 FL (6.5-10.1) 7.3 FL (6.5-10.1) Neutrophils (%) (Auto) 65.4 % (45.0-75.0) 47.9 % (45.0-75.0) Lymphocytes (%) (Auto) 24.8 % (20.0-45.0) 39.0 % (20.0-45.0) Monocytes (%) (Auto) 8.3 % (1.0-10.0) 10.4 % (1.0-10.0) H Eosinophils (%) (Auto) 0.7 % (0.0-3.0) 2.0 % (0.0-3.0) Basophils (%) (Auto) 0.7 % (0.0-2.0) 0.8 % (0.0-2.0) Prothrombin Time 10.3 SEC (9.30-11.50) Prothromb Time International Ratio 1.0 (0.9-1.1) Activated Partial Thromboplast Time 26 SEC (23-33) 26 SEC (23-33) Urine Color Brown Urine Appearance Clear Urine pH 5 (4.5-8.0) Urine Specific [place] 1.020 (1.005-1.035) Urine Protein 1+ (NEGATIVE) H Urine Glucose (UA) Negative (NEGATIVE) Urine Ketones 1+ (NEGATIVE) H Urine Occult Blood 1+ (NEGATIVE) H Urine Nitrite Negative (NEGATIVE) Urine Bilirubin 2+ (NEGATIVE) H Urine Ictotest Negative Urine Urobilinogen 4 MG/DL (0.0-1.0) H Urine Leukocyte Esterase 1+ (NEGATIVE) H Urine RBC 0-2 /HPF (0 - 2) Urine WBC 2-4 /HPF (0 - 2) Urine Squamous Epithelial Cells Few /LPF (NONE/OCC) Urine Bacteria Few /HPF (NONE) Urine HCG, Qualitative Negative Sodium Level 141 mEQ/L (135-145) 139 mEQ/L (135-145) Potassium Level 3.8 mEQ/L (3.4-4.9) 3.7 mEQ/L (3.4-4.9) Chloride Level 98 mEQ/L (98-107) 99 mEQ/L (98-107) Carbon Dioxide Level 25 mEQ/L (20-30) 26 mEQ/L (20-30) Anion Gap 18 (5-15) H 14 (5-15) Blood Urea Nitrogen 9 mg/dL (7-23) 7 mg/dL (7-23) Creatinine 0.9 mg/dL (0.5-0.9) 0.8 mg/dL (0.5-0.9) Estimat Glomerular Filtration Rate > 60 mL/min (>60) > 60 mL/min (>60) Glucose Level 106 mg/dL (74-106) 129 mg/dL (74-106) H Calcium Level 9.4 mg/dL (8.6-10.2) 8.5 mg/dL (8.6-10.2) L Total Bilirubin 2.7 mg/dL (0.0-1.2) H 2.3 mg/dL (0.0-1.2) H Direct Bilirubin 2.2 mg/dL (0.1-0.3) H 1.6 mg/dL (0.1-0.3) H Aspartate Amino Transf (AST/SGOT) 270 U/L (5-40) H 300 U/L (5-40) H Alanine Aminotransferase (ALT/SGPT) 186 U/L (3-33) H 240 U/L (3-33) H Alkaline Phosphatase 160 U/L (35-104) H 164 U/L (35-104) H Total Protein 7.0 g/dL (6.6-8.7) 5.7 g/dL (6.6-8.7) L Albumin 4.4 g/dL (3.5-5.2) 3.6 g/dL (3.5-5.2) Globulin 2.6 g/dL 2.1 g/dL Albumin/Globulin Ratio 1.6 (1.0-2.7) 1.7 (1.0-2.7) Lipase 52 U/L (< 60) 39 U/L (< 60) Amylase Level 31 U/L (10-110) Height (Feet): 5 Height (Inches): 4.00 Weight (Pounds): 165 Medications Current Medications Medications (Trade) Dose Ordered Sig/Edy Route PRN Reason Start Time Stop Time Status Last Admin Dose Admin Acetaminophen (Tylenol) 650 mg Q4H PRN ORAL T>100.5 11/18/16 22:00 12/18/16 21:59 11/19/16 08:20 Al Hydroxide/Mg Hydroxide (Mylanta II) 30 ml Q6H PRN ORAL dyspepsia 11/18/16 22:00 12/18/16 21:59 Bupropion HCl (Wellbutrin) 75 mg BID ORAL 11/19/16 09:00 12/19/16 08:59 11/19/16 08:20 Dextrose STAT PRN IV Hypoglycemia 11/18/16 22:00 12/18/16 21:59 Dextrose/Sodium Chloride (D5 0.45% NS) 1,000 ml @ 75 mls/hr [id number] IV 11/19/16 07:00 12/19/16 06:59 11/19/16 14:27 Diphenhydramine HCl (Benadryl) 25 mg Q6H PRN ORAL Itching/Pruritis 11/18/16 22:00 12/18/16 21:59 Heparin Sodium (Porcine) (Heparin 5000 units/ml) 5,000 units EVERY 12 HOURS SUBQ 11/19/16 09:00 12/19/16 08:59 11/19/16 08:26 Levothyroxine Sodium (Synthroid) 75 mcg ACBREAKFAST ORAL 11/19/16 06:30 12/19/16 06:29 11/19/16 06:17 Morphine Sulfate (Morphine Sulfate) 2 mg Q4H PRN IVP Severe Pain (Pain Scale 7-10) 11/18/16 22:00 11/25/16 21:59 11/19/16 16:05 Nitroglycerin (Ntg) 0.4 mg Q5MIN X 3 DOSES PRN SL Prn Chest Pain 11/18/16 22:15 12/18/16 22:14 Ondansetron HCl (Zofran) 4 mg Q4H PRN IVP Nausea & Vomiting 11/19/16 14:00 12/19/16 13:59 11/19/16 15:30 Piperacillin Sod/ Tazobactam Sod 3.375 gm/Sodium Chloride 110 ml @ 27.5 mls/hr EVERY 8 HOURS IVPB 11/18/16 23:30 11/25/16 23:29 11/19/16 14:07 Polyethylene Glycol (Miralax) 17 gm HSPRN PRN ORAL Constipation 11/18/16 22:00 12/18/16 21:59 Temazepam (Restoril) 15 mg HSPRN PRN ORAL Insomnia 11/18/16 22:00 11/25/16 21:59 Assessment/Plan Status: stable, progressing Assessment/Plan Assessment Dyspnea most likely secondary to cholecystitis and acute abominal pain and tenderness Acute Cholecystitis Elevated liver enzyme Plan Awaiting surgical consultation Supplemental O2 as needed for SOB and oxygen support while dyspneic Monitor O2 saturation closely Repeat CXR if dypnea not improved after resolution of underlying gall bladder disease RISA CARTWRIGHT Nov 19, 2016 16:33
--- NOTE | 2016-11-19 18:51 | History & Physical ---
History and Physical History & Physicial Dictated for Int Med-dr Patterson no. [id number] JASON MERRILL Nov 19, 2016 18:51
[2016-11-19 20:00] VITALS: BP 117/83
[2016-11-20] VITALS: BP 100/64
--- NOTE | 2016-11-20 00:58 | History and Physical Report ---
DATE OF ADMISSION: 11/18/2016 CHIEF COMPLAINT: The patient is a 36-year-old, white female, presents with chief complaint of abdominal pain. HISTORY OF PRESENT ILLNESS: Began a few months previously with intermittent abdominal pain. The patient states the abdominal pain worsened yesterday. The patient also experienced some nausea. The patient also had vomiting. The patient presented to [facility]. The patient is found to have elevated liver function tests. The patient is admitted for probable cholecystitis. REVIEW OF SYSTEMS: Constitutional: The patient denies weight loss or weight gain. The patient denies fevers or chills. HEENT: The patient denies ear or throat pain. The patient denies headache. Cardiovascular: The patient denies palpitations or chest pain. Chest: The patient has wheeze or shortness of breath. Abdomen: The patient complains of right upper quadrant pain as above. The patient complains of nausea and vomiting as above. The patient denies constipation. Genitourinary: The patient denies dysuria or increased frequency urination. Neuromuscular: The patient denies seizures or generalized weakness. PAST MEDICAL HISTORY: Significant for 1. Hypothyroidism. 2. Major depression. PAST SURGICAL HISTORY: Significant for appendectomy. CURRENT MEDICATIONS: 1. Levoxyl 0.075 mg one tablet by mouth daily. 2. Wellbutrin 75 mg one tablet p.o. twice daily. ALLERGIES: To sulfa drugs. SOCIAL HISTORY: The patient is single, however has a long-term boyfriend. The patient denies tobacco or alcohol use. PHYSICAL EXAMINATION: VITAL SIGNS: Temperature 96.6 degrees, respirations 18, pulse 62, and blood pressure 117/76. GENERAL: The patient is well-developed and well-nourished white female, in no apparent distress. HEENT: Eyes pupils are equal and responsive to light and accommodation. Extraocular movements are intact. NECK: Supple. No lymphadenopathy. CHEST: Lungs are clear to auscultation bilaterally. CARDIOVASCULAR: The rest exam regular rate S1 and S2. No murmurs, rubs, or gallops. ABDOMEN: Soft and distended with decreased bowel sounds. There is tenderness to palpation of the right upper quadrant. There is voluntary guarding noted. There is no rebound noted. EXTREMITIES: Negative for clubbing, cyanosis, or edema. RECTAL/GENITAL: Refused. NEUROLOGIC: Neurologically, Cranial nerves II through XII are grossly intact without focal deficits. Motor strength is 5/5 bilaterally. Deep tendon reflexes are 2+ plantar Recurrent history toe grossly intact without focal deficits. Motor strength is 5/5 bilaterally. Deep tendon reflexes are 2+ plantar. LABORATORY STUDIES: WBC 7.6, hemoglobin 14.5, hematocrit 42.4, and platelets 317,000. Sodium 141, potassium 3.8, chloride 98, CO2 25, BUN 9, creatinine 0.9, glucose 106, total bilirubin elevated 2.7, direct bilirubin elevated 2.2. AST elevated to 270, ALT elevated 186, alkaline phosphatase elevated 160. A CT scan of the abdomen is pending. A HIDA scan is pending. ASSESSMENT: This is a 36-year-old, white female: 1. Right upper quadrant pain. 2. Elevated liver function tests. 3. Nausea with vomiting. 4. Hypothyroidism. 5. Major depression. TREATMENT: 1. Right upper quadrant pain/elevated liver function test. A CT scan of the abdomen is pending. A General Surgery consultation is pending with Dr. Granda. A HIDA scan is pending. The patient may require cholecystectomy during this hospitalization. 2. Hypothyroidism, continue Levoxyl as above any major depression. Continue Wellbutrin as above. Javier Galarza M.D. DR: Lei JOB#: [id number] CC:
[2016-11-20 04:00] VITALS: BP 94/62
[2016-11-20] MEDS: D5 1/2NS 1,000 ML IV SCH ×2 (05:03→19:09)
[2016-11-20] MEDS: Morphine Sulfate 2mg/ml Inj IVP PRN ×2 (05:06→14:19)
[2016-11-20] MEDS: Piperacillin/Tazobactam 3.375 GM in NS 110 ML IVPB SCH (06:06)
[2016-11-20 07:10] LABS: BASOPHILS % (AUTO) 1.4 % (0.0-2.0); EOSINOPHILS % (AUTO) 2.7 % (0.0-3.0); LYMPHOCYTES % (AUTO) 40.2 % (20.0-45.0); MEAN CORPUSCULAR HEMOGLOBIN 31.1 PG (27.0-31.0); MEAN CORPUSCULAR HGB CONC 33.4 G/DL (32.0-36.0); MEAN CORPUSCULAR VOLUME 93 FL (80-99); MEAN PLATELET VOLUME 7.2 FL (6.5-10.1); MONOCYTES % (AUTO) 9.8 % (1.0-10.0); NEUTROPHILS % (AUTO) 45.9 % (45.0-75.0); PLATELET COUNT 246 K/UL (150-450); RED BLOOD COUNT 3.81 M/UL (4.20-5.40); RED CELL DISTRIBUTION WIDTH 11.5 % (11.6-14.8); WHITE BLOOD COUNT 5.9 K/UL (4.8-10.8)
[2016-11-20 07:57] LABS: ALANINE AMINOTRANSFERASE 164 U/L (3-33); ALBUMIN/GLOBULIN RATIO 1.7 (1.0-2.7); ANION GAP 15 (5-15); ASPARTATE AMINO TRANSFERASE 75 U/L (5-40); CALCIUM 8.6 mg/dL (8.6-10.2); CARBON DIOXIDE 25 mEQ/L (20-30); CHLORIDE 103 mEQ/L (98-107); CREATININE 0.8 mg/dL (0.5-0.9); GLOMERULAR FILTRATION RATE > 60 mL/min (>60); HEMOLYSIS 4; POTASSIUM 4.2 mEQ/L (3.4-4.9); SODIUM 143 mEQ/L (135-145); TOTAL PROTEIN 5.5 g/dL (6.6-8.7)
[2016-11-20 08:20] VITALS: BP 109/70
[2016-11-20] MEDS ORDERED: D5 1/2NS 1000ml IV ONE (09:30)
[2016-11-20] MEDS: BuPROPion 75mg Tab ORAL SCH ×2 (10:02→17:41)
[2016-11-20] MEDS: Heparin 5000 units/ml inj SUBQ SCH ×2 (10:05→22:01)
[2016-11-20 12:00] VITALS: BP 114/76
--- NOTE | 2016-11-20 13:53 | General Surgery Progress Note ---
General Surgery-Progress Note Subjective Reason for Consult pain in RUQ decreasing, no N/V , no dark urine or jaundice, Total Bili down to 0.7, other LFT's improving (likely passed CBD stone ) Symptoms: improved Objective Last 24 Hour Vital Signs Date Time Temp Pulse Resp B/P Pulse Ox O2 Delivery O2 Flow Rate FiO2 11/20/16 12:00 98.2 64 18 114/76 98 Room Air 11/20/16 08:20 97.8 70 20 109/70 97 Room Air 11/20/16 04:00 97.5 64 18 94/62 98 Room Air 11/20/16 00:00 97.4 69 18 100/64 99 Room Air 11/19/16 20:00 97.9 64 16 117/83 99 Room Air 11/19/16 15:54 97.5 61 18 131/73 97 Room Air I&O Intake and Output 11/19/16 11/20/16 19:00 07:00 Intake Total 1055.0 ml 802.5 ml Balance 1055.0 ml 802.5 ml Intake Oral 360 ml IV Total 1055.0 ml 442.5 ml # Voids 2 2 Cardiovascular: RSR Respiratory: clear Abdomen: soft, tenderness - 1+ RUQ epigastric area, no mass. Laboratory Tests Test 11/20/16 04:40 White Blood Count 5.9 K/UL (4.8-10.8) Red Blood Count 3.81 M/UL (4.20-5.40) L Hemoglobin 11.8 G/DL (12.0-16.0) L Hematocrit 35.4 % (37.0-47.0) L Mean Corpuscular Volume 93 FL (80-99) Mean Corpuscular Hemoglobin 31.1 PG (27.0-31.0) H Mean Corpuscular Hemoglobin Concent 33.4 G/DL (32.0-36.0) Red Cell Distribution Width 11.5 % (11.6-14.8) L Platelet Count 246 K/UL (150-450) Mean Platelet Volume 7.2 FL (6.5-10.1) Neutrophils (%) (Auto) 45.9 % (45.0-75.0) Lymphocytes (%) (Auto) 40.2 % (20.0-45.0) Monocytes (%) (Auto) 9.8 % (1.0-10.0) Eosinophils (%) (Auto) 2.7 % (0.0-3.0) Basophils (%) (Auto) 1.4 % (0.0-2.0) Sodium Level 143 mEQ/L (135-145) Potassium Level 4.2 mEQ/L (3.4-4.9) Chloride Level 103 mEQ/L (98-107) Carbon Dioxide Level 25 mEQ/L (20-30) Anion Gap 15 (5-15) Blood Urea Nitrogen 9 mg/dL (7-23) Creatinine 0.8 mg/dL (0.5-0.9) Estimat Glomerular Filtration Rate > 60 mL/min (>60) Glucose Level 116 mg/dL (74-106) H Calcium Level 8.6 mg/dL (8.6-10.2) Total Bilirubin 0.7 mg/dL (0.0-1.2) Aspartate Amino Transf (AST/SGOT) 75 U/L (5-40) H Alanine Aminotransferase (ALT/SGPT) 164 U/L (3-33) H Alkaline Phosphatase 152 U/L (35-104) H Total Protein 5.5 g/dL (6.6-8.7) L Albumin 3.5 g/dL (3.5-5.2) Globulin 2.0 g/dL Albumin/Globulin Ratio 1.7 (1.0-2.7) Imaging CAT scan, ultrasound with GB wall thickening, MRI same with ampullary obstruction yesterday, Additional Comments Cholelithiasis, likely passed CBD stone with resolving obstructive jaundice, cholecystitis likely secondary to temporary CBD blockage. Assessment Additional Comments Will repeat LFTs tomorrow. If they continue to decrease, ERCP can probably be held off and proceed with lap mitchel with cholangiogram to make absolutely sure stone(s) passed. Will discuss. GELY OLGUIN Nov 20, 2016 13:53
[2016-11-20] MEDS: Piperacillin/Tazobactam 3.375 GM in D5W 110 ML IVPB SCH ×2 (14:21→21:58)
--- NOTE | 2016-11-20 14:39 | General Progress Note ---
Assessment/Plan Assessment/Plan Assessment (1) Choledocholithiasis (2) History of appendectomy (3) Hypothyroidism (4) Acute cholecystitis Plan APCT reviewed >> Distended gallbladder with stones, somewhat thick wall, some pericholecystic edema. Findings raise concern for acute cholecystitis. MRCP reviewed >> Mild extrahepatic biliary ductal dilatation. Questionable common bile duct ampullary filling defects on a few sequences, if real could indicate choledocholithiasis. - total bilirubin elevation surgical recs >> possible cholecystectomy pt scheduled for ERCP tuesday - regular diet, NPO @ [facility] on Tuesday abx H2 repeat LFTs fu labs Subjective Allergies: Coded Allergies: SULFA (SULFONAMIDE ANTIBIOTICS) (Unverified Allergy, Unknown, 11/18/16) Uncoded Allergies: SULFA (Allergy, Unknown, Hives, 11/18/16) Subjective above noted no new symptoms some RUQ pain Objective Last 24 Hour Vital Signs Date Time Temp Pulse Resp B/P Pulse Ox O2 Delivery O2 Flow Rate FiO2 11/20/16 12:00 98.2 64 18 114/76 98 Room Air 11/20/16 08:20 97.8 70 20 109/70 97 Room Air 11/20/16 04:00 97.5 64 18 94/62 98 Room Air 11/20/16 00:00 97.4 69 18 100/64 99 Room Air 11/19/16 20:00 97.9 64 16 117/83 99 Room Air 11/19/16 15:54 97.5 61 18 131/73 97 Room Air Intake and Output 11/19/16 11/20/16 19:00 07:00 Intake Total 1055.0 ml 802.5 ml Balance 1055.0 ml 802.5 ml Intake Oral 360 ml IV Total 1055.0 ml 442.5 ml # Voids 2 2 Laboratory Tests 11/20/16 04:40: White Blood Count 5.9, Red Blood Count 3.81L, Hemoglobin 11.8L, Hematocrit 35.4L , Mean Corpuscular Volume 93, Mean Corpuscular Hemoglobin 31.1H, Mean Corpuscular Hemoglobin Concent 33.4, Red Cell Distribution Width 11.5L, Platelet Count 246, Mean Platelet Volume 7.2, Neutrophils (%) (Auto) 45.9, Lymphocytes (%) (Auto) 40.2, Monocytes (%) (Auto) 9.8, Eosinophils (%) (Auto) 2.7, Basophils (%) (Auto) 1.4, Sodium Level 143, Potassium Level 4.2, Chloride Level 103, Carbon Dioxide Level 25, Anion Gap 15, Blood Urea Nitrogen 9, Creatinine 0.8, Estimat Glomerular Filtration Rate > 60, Glucose Level 116H, Calcium Level 8.6, Total Bilirubin 0.7, Aspartate Amino Transf (AST/SGOT) 75H, Alanine Aminotransferase (ALT/SGPT) 164H, Alkaline Phosphatase 152H, Total Protein 5.5L, Albumin 3.5, Globulin 2.0, Albumin/Globulin Ratio 1.7 Height (Feet): 5 Height (Inches): 4.00 Weight (Pounds): 165 Objective WDWN NCAT supple CTA RRR Soft ND (+) RUQ TTP no edema nonfocal MARIZA DAWSON Nov 20, 2016 14:39
--- NOTE | 2016-11-20 14:53 | Internal Med Progress Note ---
Subjective Date of Service: Nov 20, 2016 Physician Name MerrillJavier Attending Physician Song Patterson MD Current Medications Medications (Trade) Dose Ordered Sig/Edy Route PRN Reason Start Time Stop Time Status Last Admin Dose Admin Acetaminophen (Tylenol) 650 mg Q4H PRN ORAL T>100.5 11/18/16 22:00 12/18/16 21:59 11/19/16 08:20 Al Hydroxide/Mg Hydroxide (Mylanta II) 30 ml Q6H PRN ORAL dyspepsia 11/18/16 22:00 12/18/16 21:59 Bupropion HCl (Wellbutrin) 75 mg BID ORAL 11/19/16 09:00 12/19/16 08:59 11/20/16 10:02 Dextrose STAT PRN IV Hypoglycemia 11/18/16 22:00 12/18/16 21:59 Dextrose/Sodium Chloride (D5 0.45% NS) 1,000 ml @ 75 mls/hr [id number] IV 11/19/16 07:00 12/19/16 06:59 11/20/16 05:03 Diphenhydramine HCl (Benadryl) 25 mg Q6H PRN ORAL Itching/Pruritis 11/18/16 22:00 12/18/16 21:59 Heparin Sodium (Porcine) (Heparin 5000 units/ml) 5,000 units EVERY 12 HOURS SUBQ 11/19/16 09:00 12/19/16 08:59 11/20/16 10:05 Levothyroxine Sodium (Synthroid) 75 mcg ACBREAKFAST ORAL 11/19/16 06:30 12/19/16 06:29 11/20/16 06:06 Morphine Sulfate (Morphine Sulfate) 2 mg Q4H PRN IVP Severe Pain (Pain Scale 7-10) 11/18/16 22:00 11/25/16 21:59 11/20/16 14:19 Nitroglycerin (Ntg) 0.4 mg Q5MIN X 3 DOSES PRN SL Prn Chest Pain 11/18/16 22:15 12/18/16 22:14 Ondansetron HCl 4 mg 4 mg Q4H PRN IVP Nausea & Vomiting 11/19/16 14:00 12/19/16 13:59 11/19/16 15:30 Piperacillin Sod/ Tazobactam Sod/ Dextrose (Zosyn/D5W) 110 ml @ 27.5 mls/hr EVERY 8 HOURS IVPB 11/20/16 14:00 11/24/16 13:59 11/20/16 14:21 Polyethylene Glycol (Miralax) 17 gm HSPRN PRN ORAL Constipation 11/18/16 22:00 12/18/16 21:59 Temazepam (Restoril) 15 mg HSPRN PRN ORAL Insomnia 11/18/16 22:00 11/25/16 21:59 Allergies: Coded Allergies: SULFA (SULFONAMIDE ANTIBIOTICS) (Unverified Allergy, Unknown, 11/18/16) Uncoded Allergies: SULFA (Allergy, Unknown, Hives, 11/18/16) ROS Limited/Unobtainable: No Constitutional: Reports: no symptoms HEENT: Reports: no symptoms Cardiovascular: Reports: no symptoms Respiratory: Reports: no symptoms Gastrointestinal/Abdominal: Reports: abdominal pain Genitourinary: Reports: no symptoms Neurologic/Psychiatric: Reports: no symptoms Subjective 36 YO F admitted with nausea, vomiting and abdominal pain. Now Cholecystitis. Cover for Int Med-Dr Enrique. Objective Last Vital Signs Date Time Temp Pulse Resp B/P Pulse Ox O2 Delivery O2 Flow Rate FiO2 11/20/16 12:00 98.2 64 18 114/76 98 Room Air General Appearance: WD/WN, no apparent distress, alert EENT: PERRL/EOMI, normal ENT inspection, TMs normal Neck: non-tender, normal alignment, supple, normal inspection Cardiovascular: normal peripheral pulses, normal rate, regular rhythm, no gallop/murmur, no JVD Respiratory/Chest: chest wall non-tender, lungs clear, normal breath sounds, no respiratory distress, no accessory muscle use Abdomen: no mass, decreased bowel sounds, distended, guarding, tender Extremities: normal range of motion 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 II-XII grossly normal, no motor/sensory deficits Laboratory Tests Test 11/20/16 04:40 White Blood Count 5.9 K/UL (4.8-10.8) Red Blood Count 3.81 M/UL (4.20-5.40) L Hemoglobin 11.8 G/DL (12.0-16.0) L Hematocrit 35.4 % (37.0-47.0) L Mean Corpuscular Volume 93 FL (80-99) Mean Corpuscular Hemoglobin 31.1 PG (27.0-31.0) H Mean Corpuscular Hemoglobin Concent 33.4 G/DL (32.0-36.0) Red Cell Distribution Width 11.5 % (11.6-14.8) L Platelet Count 246 K/UL (150-450) Mean Platelet Volume 7.2 FL (6.5-10.1) Neutrophils (%) (Auto) 45.9 % (45.0-75.0) Lymphocytes (%) (Auto) 40.2 % (20.0-45.0) Monocytes (%) (Auto) 9.8 % (1.0-10.0) Eosinophils (%) (Auto) 2.7 % (0.0-3.0) Basophils (%) (Auto) 1.4 % (0.0-2.0) Sodium Level 143 mEQ/L (135-145) Potassium Level 4.2 mEQ/L (3.4-4.9) Chloride Level 103 mEQ/L (98-107) Carbon Dioxide Level 25 mEQ/L (20-30) Anion Gap 15 (5-15) Blood Urea Nitrogen 9 mg/dL (7-23) Creatinine 0.8 mg/dL (0.5-0.9) Estimat Glomerular Filtration Rate > 60 mL/min (>60) Glucose Level 116 mg/dL (74-106) H Calcium Level 8.6 mg/dL (8.6-10.2) Total Bilirubin 0.7 mg/dL (0.0-1.2) Aspartate Amino Transf (AST/SGOT) 75 U/L (5-40) H Alanine Aminotransferase (ALT/SGPT) 164 U/L (3-33) H Alkaline Phosphatase 152 U/L (35-104) H Total Protein 5.5 g/dL (6.6-8.7) L Albumin 3.5 g/dL (3.5-5.2) Globulin 2.0 g/dL Albumin/Globulin Ratio 1.7 (1.0-2.7) Intake and Output 11/19/16 11/20/16 19:00 07:00 Intake Total 1055.0 ml 802.5 ml Balance 1055.0 ml 802.5 ml Intake Oral 360 ml IV Total 1055.0 ml 442.5 ml # Voids 2 2 Assessment/Plan Problem List: (1) Nausea & vomiting (2) RUQ abdominal pain (3) Elevated liver function tests Assessment & Plan: ?comm bile duct stone? Await ERCP on Tuesday (4) Major depression (5) Choledocholithiasis Assessment & Plan: See GI note. Await ERCP on Tuesday, Nov 22, 2016. (6) Acute cholecystitis Assessment & Plan: See surgery note. Patient is not a surgical candidate at this time. (7) Hypothyroidism Assessment & Plan: Cont levoxyl Status: not improved JAVIER MERRILL Nov 20, 2016 14:53
[2016-11-20 16:00] VITALS: BP 115/73
[2016-11-20 20:00] VITALS: BP 126/92
[2016-11-21] VITALS: BP 119/75
[2016-11-21 04:00] VITALS: BP 116/75
[2016-11-21] MEDS: Piperacillin/Tazobactam 3.375 GM in D5W 110 ML IVPB SCH ×3 (05:08→21:24)
[2016-11-21 08:00] VITALS: BP 117/74
[2016-11-21] MEDS: BuPROPion 75mg Tab ORAL SCH ×2 (09:26→17:26)
[2016-11-21] MEDS: D5 1/2NS 1,000 ML IV SCH ×2 (09:26→23:39)
[2016-11-21] MEDS: Heparin 5000 units/ml inj SUBQ SCH ×2 (09:29→20:43)
[2016-11-21 09:32] LABS: ALANINE AMINOTRANSFERASE 128 U/L (3-33); ALBUMIN/GLOBULIN RATIO 1.5 (1.0-2.7); ANION GAP 15 (5-15); ASPARTATE AMINO TRANSFERASE 32 U/L (5-40); CALCIUM 9.5 mg/dL (8.6-10.2); CARBON DIOXIDE 26 mEQ/L (20-30); CHLORIDE 95 mEQ/L (98-107); CREATININE 0.9 mg/dL (0.5-0.9); GLOMERULAR FILTRATION RATE > 60 mL/min (>60); HEMOLYSIS 4; POTASSIUM 4.5 mEQ/L (3.4-4.9); SODIUM 136 mEQ/L (135-145); TOTAL PROTEIN 6.7 g/dL (6.6-8.7)
--- NOTE | 2016-11-21 10:54 | General Progress Note ---
Assessment/Plan Assessment/Plan Assessment (1) Choledocholithiasis (2) History of appendectomy (3) Hypothyroidism (4) Acute cholecystitis Plan ? ERCP - can hold off and get IOC instead surgical recs >> possible cholecystectomy abx H2 repeat LFTs fu labs Subjective Allergies: Coded Allergies: SULFA (SULFONAMIDE ANTIBIOTICS) (Unverified Allergy, Unknown, 11/18/16) Uncoded Allergies: SULFA (Allergy, Unknown, Hives, 11/18/16) Subjective above noted no new symptoms some RUQ pain - better Objective Last 24 Hour Vital Signs Date Time Temp Pulse Resp B/P Pulse Ox O2 Delivery O2 Flow Rate FiO2 11/21/16 08:00 97.7 60 18 117/74 95 Room Air 11/21/16 04:00 98.0 61 18 116/75 98 Room Air 11/21/16 00:00 98.1 63 18 119/75 98 Room Air 11/20/16 20:00 98.4 65 20 126/92 97 Room Air 11/20/16 16:00 97.7 68 20 115/73 97 Room Air 11/20/16 12:00 98.2 64 18 114/76 98 Room Air Intake and Output 11/20/16 11/21/16 18:59 06:59 Intake Total 1535.0 ml 1682.5 ml Output Total 900 ml 700 ml Balance 635.0 ml 982.5 ml Intake Oral 600 ml 720 ml IV Total 935.0 ml 962.5 ml Output Urine Total 900 ml 700 ml # Voids 2 2 # Bowel Movements 1 Laboratory Tests 11/21/16 09:10: Sodium Level 136, Potassium Level 4.5, Chloride Level 95L, Carbon Dioxide Level 26, Anion Gap 15, Blood Urea Nitrogen 8, Creatinine 0.9, Estimat Glomerular Filtration Rate > 60, Glucose Level 113H, Calcium Level 9.5, Total Bilirubin 0.6 , Aspartate Amino Transf (AST/SGOT) 32, Alanine Aminotransferase (ALT/SGPT) 128H , Alkaline Phosphatase 150H, Total Protein 6.7, Albumin 4.1, Globulin 2.6, Albumin/Globulin Ratio 1.5 Height (Feet): 5 Height (Inches): 4.00 Weight (Pounds): 165 Objective WDWN NCAT supple CTA RRR Soft ND (+) RUQ TTP no edema nonfocal KHORRAMI,PAYMAN Nov 21, 2016 10:54
--- NOTE | 2016-11-21 11:55 | General Surgery Progress Note ---
General Surgery-Progress Note Subjective Symptoms: improved Additional Comments No pain , tolerating liquids, no N/V, no dark urine Objective Last 24 Hour Vital Signs Date Time Temp Pulse Resp B/P Pulse Ox O2 Delivery O2 Flow Rate FiO2 11/21/16 08:00 97.7 60 18 117/74 95 Room Air 11/21/16 04:00 98.0 61 18 116/75 98 Room Air 11/21/16 00:00 98.1 63 18 119/75 98 Room Air 11/20/16 20:00 98.4 65 20 126/92 97 Room Air 11/20/16 16:00 97.7 68 20 115/73 97 Room Air 11/20/16 12:00 98.2 64 18 114/76 98 Room Air I&O Intake and Output 11/20/16 11/21/16 19:00 07:00 Intake Total 1535.0 ml 1785.0 ml Output Total 900 ml 700 ml Balance 635.0 ml 1085.0 ml Intake Oral 600 ml 720 ml IV Total 935.0 ml 1065.0 ml Output Urine Total 900 ml 700 ml # Voids 2 2 # Bowel Movements 1 Cardiovascular: RSR Respiratory: clear Abdomen: soft, non-tender Extremities: no edema Laboratory Tests Test 11/21/16 09:10 Sodium Level 136 mEQ/L (135-145) Potassium Level 4.5 mEQ/L (3.4-4.9) Chloride Level 95 mEQ/L (98-107) L Carbon Dioxide Level 26 mEQ/L (20-30) Anion Gap 15 (5-15) Blood Urea Nitrogen 8 mg/dL (7-23) Creatinine 0.9 mg/dL (0.5-0.9) Estimat Glomerular Filtration Rate > 60 mL/min (>60) Glucose Level 113 mg/dL (74-106) H Calcium Level 9.5 mg/dL (8.6-10.2) Total Bilirubin 0.6 mg/dL (0.0-1.2) Aspartate Amino Transf (AST/SGOT) 32 U/L (5-40) Alanine Aminotransferase (ALT/SGPT) 128 U/L (3-33) H Alkaline Phosphatase 150 U/L (35-104) H Total Protein 6.7 g/dL (6.6-8.7) Albumin 4.1 g/dL (3.5-5.2) Globulin 2.6 g/dL Albumin/Globulin Ratio 1.5 (1.0-2.7) Additional Comments Resolving obstructive jaundice with likely spontaneous passage of CBD stone with no current obstruction. Cholelithiasis, cholecystitis 9secondary to temporary CBD blockage) Assessment Additional Comments To OR tomorrow for laparoscopic cholecystectomy and cholangiogram, possible laparotomy. Pt understands indications, risks, benefits, possible complications and wishes to proceed. She is aware that if cholangiogram show CBD stone(s) , she would still require ERCP. Discussed with Dr. Solomon and GELY Camarena Nov 21, 2016 11:55
[2016-11-21 12:00] VITALS: BP 118/77
--- NOTE | 2016-11-21 13:34 | Internal Med Progress Note ---
Subjective Date of Service: Nov 21, 2016 Physician Name MerrillJavier Attending Physician Song Patterson MD Current Medications Medications (Trade) Dose Ordered Sig/Edy Route PRN Reason Start Time Stop Time Status Last Admin Dose Admin Acetaminophen (Tylenol) 650 mg Q4H PRN ORAL T>100.5 11/18/16 22:00 12/18/16 21:59 11/19/16 08:20 Al Hydroxide/Mg Hydroxide (Mylanta II) 30 ml Q6H PRN ORAL dyspepsia 11/18/16 22:00 12/18/16 21:59 Bupropion HCl (Wellbutrin) 75 mg BID ORAL 11/19/16 09:00 12/19/16 08:59 11/21/16 09:26 Dextrose STAT PRN IV Hypoglycemia 11/18/16 22:00 12/18/16 21:59 Dextrose/Sodium Chloride (D5 0.45% NS) 1,000 ml @ 75 mls/hr [id number] IV 11/19/16 07:00 12/19/16 06:59 11/21/16 09:26 Diphenhydramine HCl (Benadryl) 25 mg Q6H PRN ORAL Itching/Pruritis 11/18/16 22:00 12/18/16 21:59 Heparin Sodium (Porcine) (Heparin 5000 units/ml) 5,000 units EVERY 12 HOURS SUBQ 11/19/16 09:00 12/19/16 08:59 11/21/16 09:29 Levothyroxine Sodium (Synthroid) 75 mcg ACBREAKFAST ORAL 11/19/16 06:30 12/19/16 06:29 11/21/16 05:55 Morphine Sulfate (Morphine Sulfate) 2 mg Q4H PRN IVP Severe Pain (Pain Scale 7-10) 11/18/16 22:00 11/25/16 21:59 11/20/16 14:19 Nitroglycerin (Ntg) 0.4 mg Q5MIN X 3 DOSES PRN SL Prn Chest Pain 11/18/16 22:15 12/18/16 22:14 Ondansetron HCl 4 mg 4 mg Q4H PRN IVP Nausea & Vomiting 11/19/16 14:00 12/19/16 13:59 11/19/16 15:30 Piperacillin Sod/ Tazobactam Sod/ Dextrose (Zosyn/D5W) 110 ml @ 27.5 mls/hr EVERY 8 HOURS IVPB 11/20/16 14:00 11/24/16 13:59 11/21/16 05:08 Polyethylene Glycol (Miralax) 17 gm HSPRN PRN ORAL Constipation 11/18/16 22:00 12/18/16 21:59 Temazepam (Restoril) 15 mg HSPRN PRN ORAL Insomnia 11/18/16 22:00 11/25/16 21:59 Allergies: Coded Allergies: SULFA (SULFONAMIDE ANTIBIOTICS) (Unverified Allergy, Unknown, 11/18/16) Uncoded Allergies: SULFA (Allergy, Unknown, Hives, 11/18/16) ROS Limited/Unobtainable: No Constitutional: Reports: no symptoms HEENT: Reports: no symptoms Cardiovascular: Reports: no symptoms Gastrointestinal/Abdominal: Reports: abdominal pain, nausea Genitourinary: Reports: no symptoms Neurologic/Psychiatric: Reports: no symptoms Subjective 36 YO F admitted with nausea, vomiting and abdominal pain. Now Cholecystitis. Laparoscopic vs open cholecystectomy scheduled 11/22/16. Cover for Int Med- Dr Enrique. Objective Last Vital Signs Date Time Temp Pulse Resp B/P Pulse Ox O2 Delivery O2 Flow Rate FiO2 11/21/16 12:00 97.3 74 18 118/77 97 Room Air Laboratory Tests Test 11/21/16 09:10 Sodium Level 136 mEQ/L (135-145) Potassium Level 4.5 mEQ/L (3.4-4.9) Chloride Level 95 mEQ/L (98-107) L Carbon Dioxide Level 26 mEQ/L (20-30) Anion Gap 15 (5-15) Blood Urea Nitrogen 8 mg/dL (7-23) Creatinine 0.9 mg/dL (0.5-0.9) Estimat Glomerular Filtration Rate > 60 mL/min (>60) Glucose Level 113 mg/dL (74-106) H Calcium Level 9.5 mg/dL (8.6-10.2) Total Bilirubin 0.6 mg/dL (0.0-1.2) Aspartate Amino Transf (AST/SGOT) 32 U/L (5-40) Alanine Aminotransferase (ALT/SGPT) 128 U/L (3-33) H Alkaline Phosphatase 150 U/L (35-104) H Total Protein 6.7 g/dL (6.6-8.7) Albumin 4.1 g/dL (3.5-5.2) Globulin 2.6 g/dL Albumin/Globulin Ratio 1.5 (1.0-2.7) Intake and Output 11/20/16 11/21/16 19:00 07:00 Intake Total 1535.0 ml 1785.0 ml Output Total 900 ml 700 ml Balance 635.0 ml 1085.0 ml Intake Oral 600 ml 720 ml IV Total 935.0 ml 1065.0 ml Output Urine Total 900 ml 700 ml # Voids 2 2 # Bowel Movements 1 Objective General Appearance: WD/WN, no apparent distress, alert EENT: PERRL/EOMI, normal ENT inspection, TMs normal Neck: non-tender, normal alignment, supple, normal inspection Cardiovascular: normal peripheral pulses, normal rate, regular rhythm, no gallop/murmur, no JVD Respiratory/Chest: chest wall non-tender, lungs clear, normal breath sounds, no respiratory distress, no accessory muscle use Abdomen: no mass, decreased bowel sounds, distended, guarding, tender Extremities: normal range of motion 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 (4) Major depression (5) Choledocholithiasis Assessment & Plan: See GI note. Await laparoscopic vs open cholecystectomy on Tuesday, Nov 22, 2016-See surgery note. (6) Acute cholecystitis Assessment & Plan: See surgery note. Patient is not a surgical candidate at this time. (7) Hypothyroidism Assessment & Plan: Cont levoxyl Status: not improved JAVIER MERRILL Nov 21, 2016 13:34
[2016-11-21 16:00] VITALS: BP 120/77
[2016-11-21 19:00] VITALS: BP 116/86
[2016-11-22] VITALS (13 sets, daily range): BP systolic 97–148; BP diastolic 59–91
[2016-11-22] MEDS: Piperacillin/Tazobactam 3.375 GM in D5W 110 ML IVPB SCH ×3 (05:48→21:23)
[2016-11-22 07:28] LABS: BASOPHILS % (AUTO) 0.8 % (0.0-2.0); EOSINOPHILS % (AUTO) 1.7 % (0.0-3.0); LYMPHOCYTES % (AUTO) 38.1 % (20.0-45.0); MEAN CORPUSCULAR HEMOGLOBIN 31.4 PG (27.0-31.0); MEAN CORPUSCULAR HGB CONC 34.1 G/DL (32.0-36.0); MEAN CORPUSCULAR VOLUME 92 FL (80-99); MEAN PLATELET VOLUME 7.2 FL (6.5-10.1); MONOCYTES % (AUTO) 8.4 % (1.0-10.0); PLATELET COUNT 275 K/UL (150-450); RED BLOOD COUNT 4.17 M/UL (4.20-5.40); RED CELL DISTRIBUTION WIDTH 11.2 % (11.6-14.8)
[2016-11-22 08:02] LABS: ALANINE AMINOTRANSFERASE 99 U/L (3-33); ALBUMIN/GLOBULIN RATIO 1.7 (1.0-2.7); ANION GAP 17 (5-15); ASPARTATE AMINO TRANSFERASE 33 U/L (5-40); CALCIUM 9.2 mg/dL (8.6-10.2); CARBON DIOXIDE 24 mEQ/L (20-30); CHLORIDE 99 mEQ/L (98-107); CREATININE 0.9 mg/dL (0.5-0.9); GLOMERULAR FILTRATION RATE > 60 mL/min (>60); HEMOLYSIS 8; POTASSIUM 3.9 mEQ/L (3.4-4.9); SODIUM 140 mEQ/L (135-145); TOTAL PROTEIN 6.3 g/dL (6.6-8.7)
--- NOTE | 2016-11-22 08:38 | Diagnostic Imaging Report ---
Indication:Abdominal pain Technique: Grayscale and duplex Doppler imaging of the abdomen performed. Comparison: None Findings: There is gallbladder wall thickening and gallstones is. Sonographic Leung's is equivocal as the patient was medicated for pain. Cholecystitis is certainly not excluded. The proximal part of the common bile duct is prominent measuring about 10 mm. More distal part of the CBD is not seen on this study. Please refer to the MRCP for more information. The liver is unremarkable. Main portal vein is patent. There is no free fluid. Kidneys, spleen, demonstrated part of the pancreas and aorta appear unremarkable. Impression: Cholelithiasis with wall thickening. Cholecystitis not excluded.
[2016-11-22] MEDS: Heparin 5000 units/ml inj SUBQ SCH ×2 (09:00→21:22)
[2016-11-22] MEDS: BuPROPion 75mg Tab ORAL SCH ×2 (09:00→17:51)
--- NOTE | 2016-11-22 09:11 | Pre-Procedure Note/Attestation ---
Pre-Procedure Note/Attestation Complete Prior to Procedure Planned Procedure: not applicable Procedure Narrative: laparoscopic cholecystectomy, possible open, possible IOC Indications for Procedure Pre-Operative Diagnosis: acute cholecystitis, choledocholithiasis Attestation I attest that I discussed the nature of the procedure; its benefits; risks and complications; and alternatives (and the risks and benefits of such alternatives ), prior to the procedure, with the patient (or the patient's legal new accounts representative). I attest that, if there was a reasonable possibility of needing a blood transfusion, the patient (or the patient's legal new accounts representative) was given the [facility] standardized written summary, pursuant to the Irwin Michelle Blood Safety Act ([place] Health and Safety Code # 1645, as amended). I attest that I re-evaluated the patient just prior to the surgery and that there has been no change in the patient's H&P, except as documented below: Ignacio aHrt Nov 22, 2016 09:11
[2016-11-22] MEDS ORDERED: NS Irrig 1000ml IRRIG ONE (09:30)
[2016-11-22] MEDS ORDERED: Bupivacaine w/Epi 0.25% 30ml Vial INJ ONE (09:31)
[2016-11-22] MEDS ORDERED: Iothalamate Meglumine 60% 30ML INJ ONE (09:31)
[2016-11-22] MEDS ORDERED: Surgicel 4in x 8in TOPIC ONE (09:42)
[2016-11-22] MEDS ORDERED: Midazolam 2mg/2ml Inj ONE (09:45)
[2016-11-22] MEDS ORDERED: Zemuron 50mg/5ml Inj IV ONE (09:45)
[2016-11-22] MEDS ORDERED: Succinylcholine 20mg/ml 10ml vial ONE (09:45)
[2016-11-22] MEDS ORDERED: LR 1000ml ONE (09:45)
[2016-11-22] MEDS ORDERED: fentaNYL 100 mcg/2 mL IV ONE (09:45)
[2016-11-22] MEDS ORDERED: Propofol 10mg/ml 20ml IV ONE (09:45)
[2016-11-22] MEDS ORDERED: Glycopyrrolate 0.2mg/ml 1ml Vial ONE (09:45)
[2016-11-22] MEDS ORDERED: Neostigmine 1mg/ml 10ml Inj ONE (09:45)
[2016-11-22] MEDS ORDERED: Ketorolac 30mg Inj ONE (09:45)
[2016-11-22] MEDS ORDERED: LR 1000ml 1,000 ML IVLG SCH (10:40)
--- NOTE | 2016-11-22 10:40 | Anethesia Preoperative Eval ---
Anesthesia Pre-op PMH/ROS General Date of Evaluation: Nov 22, 2016 Time of Evaluation: 09:40 Anesthesiologist: Francesco ASA Score: ASA 2 Mallampati Score Class I : Soft palate, uvula, fauces, pillars visible Class II: Soft palate, uvula, fauces visible Class III: Soft palate, base of uvula visible Class IV: Only hard plate visible Mallampati Classification: Class II Surgeon: Long Diagnosis: Symptomatic cholelithiasis Surgical Procedure: LAPAROSCOPIC CHOLECYSTECTOMY Anesthesia History: none Family History: no anesthesia problems Allergies: Coded Allergies: SULFA (SULFONAMIDE ANTIBIOTICS) (Unverified Allergy, Unknown, 11/18/16) Uncoded Allergies: SULFA (Allergy, Unknown, Hives, 11/18/16) Medications: see eMAR Past Medical History Cardiovascular: Denies: CAD, HTN, MA, arrhythmia, other, valve dz Pulmonary: Denies: COPD, PADMINI, asthma, other Gastrointestinal/Genitourinary: Reports: GERD, Denies: CRI, ESRD, other Neurologic/Psychiatric: Reports: depression/anxiety Endocrine: Reports: hypothyroidism, Denies: DM, other, steroids HEENT: Denies: [place] (L), [place] (R), cataract (L), cataract (R), glaucoma, other Hematology/Immune: Denies: DVT, anemia, bleeding disorder, other Musculoskeletal/Integumentary: Denies: DDD, DJD, OA, RA, edema, other PMH Narrative: admitted with acute abdominal pain nausea, vomiting PSxH Narrative: Appendectomy Anesthesia Pre-op Phys. Exam Physician Exam Last Vital Signs Date Time Temp Pulse Resp B/P Pulse Ox O2 Delivery O2 Flow Rate FiO2 11/22/16 04:00 97.0 60 18 97/59 98 Room Air Constitutional: NAD Neurologic: CN 2-12 intact Cardiovascular: RRR, no M/R/G Respiratory: CTA Gastrointestinal: S/NT/ND Airway Exam Mallampati Score: Class II MO: limited Neck: flexible ROM: full Teeth: intact Dentures: no lower, no upper Anesthesia Pre-op A/P Labs Hematology Test 11/22/16 06:20 White Blood Count 7.0 K/UL (4.8-10.8) Red Blood Count 4.17 M/UL (4.20-5.40) L Hemoglobin 13.1 G/DL (12.0-16.0) Hematocrit 38.4 % (37.0-47.0) Mean Corpuscular Volume 92 FL (80-99) Mean Corpuscular Hemoglobin 31.4 PG (27.0-31.0) H Mean Corpuscular Hemoglobin Concent 34.1 G/DL (32.0-36.0) Red Cell Distribution Width 11.2 % (11.6-14.8) L Platelet Count 275 K/UL (150-450) Mean Platelet Volume 7.2 FL (6.5-10.1) Neutrophils (%) (Auto) 51.0 % (45.0-75.0) Lymphocytes (%) (Auto) 38.1 % (20.0-45.0) Monocytes (%) (Auto) 8.4 % (1.0-10.0) Eosinophils (%) (Auto) 1.7 % (0.0-3.0) Basophils (%) (Auto) 0.8 % (0.0-2.0) Coagulation Test 11/22/16 06:20 Prothrombin Time 10.0 SEC (9.30-11.50) Prothromb Time International Ratio 1.0 (0.9-1.1) Activated Partial Thromboplast Time 25 SEC (23-33) Chemistry Test 11/22/16 06:20 Sodium Level 140 mEQ/L (135-145) Potassium Level 3.9 mEQ/L (3.4-4.9) Chloride Level 99 mEQ/L (98-107) Carbon Dioxide Level 24 mEQ/L (20-30) Anion Gap 17 (5-15) H Blood Urea Nitrogen 9 mg/dL (7-23) Creatinine 0.9 mg/dL (0.5-0.9) Estimat Glomerular Filtration Rate > 60 mL/min (>60) Glucose Level 114 mg/dL (74-106) H Calcium Level 9.2 mg/dL (8.6-10.2) Total Bilirubin 0.4 mg/dL (0.0-1.2) Aspartate Amino Transf (AST/SGOT) 33 U/L (5-40) Alanine Aminotransferase (ALT/SGPT) 99 U/L (3-33) H Alkaline Phosphatase 128 U/L (35-104) H Total Protein 6.3 g/dL (6.6-8.7) L Albumin 4.0 g/dL (3.5-5.2) Globulin 2.3 g/dL Albumin/Globulin Ratio 1.7 (1.0-2.7) Studies Pre-op Studies: EKG - SR Risk Assessment & Plan Assessment: ASA 2 Plan: GA with ETT PONV prevention Pre-Antibiotics Drug: as scheduled Given Within 1 Hr of Incision: Yes Time Given: 10:28 COLIN CLARKE M.D. Nov 22, 2016 10:40
[2016-11-22] MEDS ORDERED: D5 1/2NS 1000ml IV ONE (10:44)
[2016-11-22] MEDS ORDERED: Ketorolac 30mg Inj IV PRN ×2 (10:45→12:00)
[2016-11-22] MEDS ORDERED: Metoclopramide 10mg/2ml Inj IVP PRN (10:45)
[2016-11-22] MEDS ORDERED: DiphenhydrAMINE 50mg/ml Inj IVP PRN (10:45)
--- NOTE | 2016-11-22 11:30 | Internal Med Progress Note ---
Subjective Date of Service: Nov 22, 2016 Physician Name Javier Merrill Attending Physician Song Patterson MD Current Medications Medications (Trade) Dose Ordered Sig/Edy Route PRN Reason Start Time Stop Time Status Last Admin Dose Admin Acetaminophen (Tylenol) 650 mg Q4H PRN ORAL T>100.5 11/18/16 22:00 12/18/16 21:59 11/19/16 08:20 Al Hydroxide/Mg Hydroxide (Mylanta II) 30 ml Q6H PRN ORAL dyspepsia 11/18/16 22:00 12/18/16 21:59 Bupropion HCl (Wellbutrin) 75 mg BID ORAL 11/19/16 09:00 12/19/16 08:59 11/21/16 17:26 Dextrose STAT PRN IV Hypoglycemia 11/18/16 22:00 12/18/16 21:59 Dextrose/Sodium Chloride (D5 0.45% NS) 1,000 ml @ 75 mls/hr [id number] IV 11/19/16 07:00 12/19/16 06:59 11/21/16 23:39 Diphenhydramine HCl (Benadryl) 25 mg Q6H PRN ORAL Itching/Pruritis 11/18/16 22:00 12/18/16 21:59 Diphenhydramine HCl 25 mg 25 mg Q15M PRN IVP Itching 11/22/16 10:45 11/22/16 16:00 Fentanyl Citrate (Sublimaze 100 mcg/2 mL) 50 mcg Q10M PRN IV Moderate Pain (Pain Scale 4-6) 11/22/16 10:45 11/22/16 16:00 Heparin Sodium (Porcine) (Heparin 5000 units/ml) 5,000 units EVERY 12 HOURS SUBQ 11/19/16 09:00 12/19/16 08:59 11/21/16 09:29 Hydromorphone HCl (Dilaudid) 0.5 mg Q15M PRN IVP Severe Pain (Pain Scale 7-10) 11/22/16 10:45 11/22/16 16:00 Ketorolac Tromethamine (Toradol 30mg) 30 mg Q1H PRN IV Severe Breakthru Pain (>7) 11/22/16 10:45 11/22/16 16:00 Lactated Ringer's (Lactated Ringer's 1000ml) 1,000 ml @ 10 mls/hr Q24H IVLG 11/22/16 10:40 11/22/16 12:39 Levothyroxine Sodium (Synthroid) 75 mcg ACBREAKFAST ORAL 11/19/16 06:30 12/19/16 06:29 11/21/16 05:55 Metoclopramide HCl (Reglan) 10 mg Q1H PRN IVP Nausea & Vomiting 11/22/16 10:45 11/22/16 16:00 Morphine Sulfate (Morphine Sulfate) 2 mg Q4H PRN IVP Severe Pain (Pain Scale 7-10) 11/18/16 22:00 11/25/16 21:59 11/20/16 14:19 Nitroglycerin (Ntg) 0.4 mg Q5MIN X 3 DOSES PRN SL Prn Chest Pain 11/18/16 22:15 12/18/16 22:14 Ondansetron HCl 4 mg 4 mg Q4H PRN IVP Nausea & Vomiting 11/19/16 14:00 12/19/16 13:59 11/19/16 15:30 Piperacillin Sod/ Tazobactam Sod/ Dextrose (Zosyn/D5W) 110 ml @ 27.5 mls/hr EVERY 8 HOURS IVPB 11/20/16 14:00 11/24/16 13:59 11/22/16 05:48 Polyethylene Glycol (Miralax) 17 gm HSPRN PRN ORAL Constipation 11/18/16 22:00 12/18/16 21:59 Temazepam (Restoril) 15 mg HSPRN PRN ORAL Insomnia 11/18/16 22:00 11/25/16 21:59 Allergies: Coded Allergies: SULFA (SULFONAMIDE ANTIBIOTICS) (Unverified Allergy, Unknown, 11/18/16) Uncoded Allergies: SULFA (Allergy, Unknown, Hives, 11/18/16) ROS Limited/Unobtainable: No Constitutional: Reports: no symptoms HEENT: Reports: no symptoms Cardiovascular: Reports: no symptoms Respiratory: Reports: no symptoms Gastrointestinal/Abdominal: Reports: abdominal pain, nausea Genitourinary: Reports: no symptoms Neurologic/Psychiatric: Reports: no symptoms Subjective 36 YO F admitted with nausea, vomiting and abdominal pain. Now Cholecystitis. Laparoscopic vs open cholecystectomy scheduled today, 11/22/16. Cover for Int Med-Dr Enrique. Objective Last Vital Signs Date Time Temp Pulse Resp B/P Pulse Ox O2 Delivery O2 Flow Rate FiO2 11/22/16 04:00 97.0 60 18 97/59 98 Room Air Laboratory Tests Test 11/22/16 06:20 White Blood Count 7.0 K/UL (4.8-10.8) Red Blood Count 4.17 M/UL (4.20-5.40) L Hemoglobin 13.1 G/DL (12.0-16.0) Hematocrit 38.4 % (37.0-47.0) Mean Corpuscular Volume 92 FL (80-99) Mean Corpuscular Hemoglobin 31.4 PG (27.0-31.0) H Mean Corpuscular Hemoglobin Concent 34.1 G/DL (32.0-36.0) Red Cell Distribution Width 11.2 % (11.6-14.8) L Platelet Count 275 K/UL (150-450) Mean Platelet Volume 7.2 FL (6.5-10.1) Neutrophils (%) (Auto) 51.0 % (45.0-75.0) Lymphocytes (%) (Auto) 38.1 % (20.0-45.0) Monocytes (%) (Auto) 8.4 % (1.0-10.0) Eosinophils (%) (Auto) 1.7 % (0.0-3.0) Basophils (%) (Auto) 0.8 % (0.0-2.0) Prothrombin Time 10.0 SEC (9.30-11.50) Prothromb Time International Ratio 1.0 (0.9-1.1) Activated Partial Thromboplast Time 25 SEC (23-33) Sodium Level 140 mEQ/L (135-145) Potassium Level 3.9 mEQ/L (3.4-4.9) Chloride Level 99 mEQ/L (98-107) Carbon Dioxide Level 24 mEQ/L (20-30) Anion Gap 17 (5-15) H Blood Urea Nitrogen 9 mg/dL (7-23) Creatinine 0.9 mg/dL (0.5-0.9) Estimat Glomerular Filtration Rate > 60 mL/min (>60) Glucose Level 114 mg/dL (74-106) H Calcium Level 9.2 mg/dL (8.6-10.2) Total Bilirubin 0.4 mg/dL (0.0-1.2) Aspartate Amino Transf (AST/SGOT) 33 U/L (5-40) Alanine Aminotransferase (ALT/SGPT) 99 U/L (3-33) H Alkaline Phosphatase 128 U/L (35-104) H Total Protein 6.3 g/dL (6.6-8.7) L Albumin 4.0 g/dL (3.5-5.2) Globulin 2.3 g/dL Albumin/Globulin Ratio 1.7 (1.0-2.7) Intake and Output 11/21/16 11/22/16 19:00 07:00 Intake Total 1260 ml 1357.5 ml Output Total 1000 ml Balance 260 ml 1357.5 ml Intake Oral 360 ml 480 ml IV Total 900 ml 877.5 ml Output Urine Total 1000 ml # Voids 2 7 # Bowel Movements 1 Objective General Appearance: WD/WN, no apparent distress, alert EENT: PERRL/EOMI, normal ENT inspection, TMs normal Neck: non-tender, normal alignment, supple, normal inspection Cardiovascular: normal peripheral pulses, normal rate, regular rhythm, no gallop/murmur, no JVD Respiratory/Chest: chest wall non-tender, lungs clear, normal breath sounds, no respiratory distress, no accessory muscle use Abdomen: no mass, decreased bowel sounds, distended, guarding, tender Extremities: normal range of motion 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 (4) Major depression (5) Choledocholithiasis Assessment & Plan: See GI note. Await laparoscopic vs open cholecystectomy today, Tuesday, Nov 22, 2016-See surgery note. (6) Acute cholecystitis Assessment & Plan: See surgery note. (7) Hypothyroidism Assessment & Plan: Cont levoxyl Status: not improved JAVIER MERRILL Nov 22, 2016 11:30
--- NOTE | 2016-11-22 11:31 | GI Progress Note ---
Assessment/Plan Problems: (1) Elevated liver function tests ICD Codes: R94.5 - Abnormal results of liver function studies SNOMED: 493218767 (2) Acute cholecystitis ICD Codes: K81.0 - Acute cholecystitis SNOMED: 61789452 (3) Vomiting ICD Codes: R11.10 - Vomiting, unspecified SNOMED: 275128848 Qualifiers: Qualified Codes: R11.2 - Nausea with vomiting, unspecified (4) Dehydration ICD Codes: E86.0 - Dehydration SNOMED: 77511648 (5) Nausea & vomiting ICD Codes: R11.2 - Nausea with vomiting, unspecified SNOMED: 47997416 (6) RUQ abdominal pain ICD Codes: R10.11 - Right upper quadrant pain SNOMED: 827769957 (7) Choledocholithiasis ICD Codes: K80.50 - Calculus of bile duct without cholangitis or cholecystitis without obstruction SNOMED: 409360278 (8) Hypothyroidism ICD Codes: E03.9 - Hypothyroidism, unspecified SNOMED: 70943733 Status: progressing Status Narrative Discussed with Dr. Solomon. Assessment/Plan patient down for lap mitchel today ERCP cancelled. diet per surgery abx H2 repeat LFTs fu labs Subjective Gastrointestinal/Abdominal: Reports: abdominal pain - less Objective Last 24 Hour Vital Signs Date Time Temp Pulse Resp B/P Pulse Ox O2 Delivery O2 Flow Rate FiO2 11/22/16 04:00 97.0 60 18 97/59 98 Room Air 11/21/16 19:00 98.1 63 20 116/86 98 Room Air 11/21/16 16:00 97.5 65 20 120/77 97 Room Air 11/21/16 12:00 97.3 74 18 118/77 97 Room Air Intake and Output 11/21/16 11/22/16 19:00 07:00 Intake Total 1260 ml 1357.5 ml Output Total 1000 ml Balance 260 ml 1357.5 ml Intake Oral 360 ml 480 ml IV Total 900 ml 877.5 ml Output Urine Total 1000 ml # Voids 2 7 # Bowel Movements 1 Laboratory Tests Test 11/22/16 06:20 White Blood Count 7.0 K/UL (4.8-10.8) Red Blood Count 4.17 M/UL (4.20-5.40) L Hemoglobin 13.1 G/DL (12.0-16.0) Hematocrit 38.4 % (37.0-47.0) Mean Corpuscular Volume 92 FL (80-99) Mean Corpuscular Hemoglobin 31.4 PG (27.0-31.0) H Mean Corpuscular Hemoglobin Concent 34.1 G/DL (32.0-36.0) Red Cell Distribution Width 11.2 % (11.6-14.8) L Platelet Count 275 K/UL (150-450) Mean Platelet Volume 7.2 FL (6.5-10.1) Neutrophils (%) (Auto) 51.0 % (45.0-75.0) Lymphocytes (%) (Auto) 38.1 % (20.0-45.0) Monocytes (%) (Auto) 8.4 % (1.0-10.0) Eosinophils (%) (Auto) 1.7 % (0.0-3.0) Basophils (%) (Auto) 0.8 % (0.0-2.0) Prothrombin Time 10.0 SEC (9.30-11.50) Prothromb Time International Ratio 1.0 (0.9-1.1) Activated Partial Thromboplast Time 25 SEC (23-33) Sodium Level 140 mEQ/L (135-145) Potassium Level 3.9 mEQ/L (3.4-4.9) Chloride Level 99 mEQ/L (98-107) Carbon Dioxide Level 24 mEQ/L (20-30) Anion Gap 17 (5-15) H Blood Urea Nitrogen 9 mg/dL (7-23) Creatinine 0.9 mg/dL (0.5-0.9) Estimat Glomerular Filtration Rate > 60 mL/min (>60) Glucose Level 114 mg/dL (74-106) H Calcium Level 9.2 mg/dL (8.6-10.2) Total Bilirubin 0.4 mg/dL (0.0-1.2) Aspartate Amino Transf (AST/SGOT) 33 U/L (5-40) Alanine Aminotransferase (ALT/SGPT) 99 U/L (3-33) H Alkaline Phosphatase 128 U/L (35-104) H Total Protein 6.3 g/dL (6.6-8.7) L Albumin 4.0 g/dL (3.5-5.2) Globulin 2.3 g/dL Albumin/Globulin Ratio 1.7 (1.0-2.7) Height (Feet): 5 Height (Inches): 4.00 Weight (Pounds): 165 General Appearance: no apparent distress, alert Cardiovascular: normal rate Respiratory/Chest: normal breath sounds, no respiratory distress Abdominal Exam: normal bowel sounds, non tender, soft Extremities: normal range of motion Jaimee Dumont N.P. Nov 22, 2016 11:31
--- NOTE | 2016-11-22 11:34 | Brief Operative Note ---
Immediate Post Operative Note Operative Note Pre-op Diagnosis: acute cholecystitis, choledocholithiasis Procedure: Laparoscopic cholecystectomy with intraoperative cholangiogram Post-op Diagnosis: same as pre-op Findings: consistent w/pre-op dx studies Surgeon: Hailey Alberene Stone Setter: Long Anesthesiologist: Elio Anesthesia: general Specimen: yes - gallbladder Condition: stable Fluids: see anesthesia records Estimated Blood Loss: minimal Implant(s) used?: No Ignacio Hart Nov 22, 2016 11:34
[2016-11-22] MEDS ORDERED: Norco 5mg/325mg tab ORAL PRN (11:45)
[2016-11-22] MEDS ORDERED: Norco 10mg/325mg tab ORAL PRN (11:45)
--- NOTE | 2016-11-22 11:46 | Immediate Post-Op Evaluation ---
Immediate Post-Op Evalulation Immediate Post-Op Evalulation Procedure: Laparoscopic cholecystectomy with intraoperative cholangiogram Date of Evaluation: Nov 22, 2016 Time of Evaluation: 11:44 IV Fluids: 1000 Blood Products: none Estimated Blood Loss: min Urinary Output: none Blood Pressure Systolic: 123 Blood Pressure Diastolic: 80 Pulse Rate: 102 Respiratory Rate: 22 O2 Sat by Pulse Oximetry: 99 Temperature (Fahrenheit): 98.1 Pain Score (1-10): 4 Nausea: No Vomiting: No Complications none Patient Status: awake, extubated, none Hydration Status: adequate COLIN CLARKE M.D. Nov 22, 2016 11:46
[2016-11-22] MEDS: Hydromorphone 0.5mg/0.5ml inj IVP PRN ×2 (11:50→12:13)
[2016-11-22] MEDS: fentaNYL 100 mcg/2 mL IV PRN ×2 (11:58→13:01)
[2016-11-22] MEDS ORDERED: Midazolam 2mg/2ml Inj IVP SCH (12:00)
[2016-11-22] MEDS: Morphine Sulfate 2mg/ml Inj IVP PRN ×2 (14:50→20:11)
--- NOTE | 2016-11-22 15:35 | Diagnostic Imaging Report ---
Indications: Right upper quadrant abdominal pain, nausea and vomiting, cholelithiasis, laparoscopic cholecystectomy with cholangiogram Technique: Procedures include fluoroscopy performed by Dr. Oglesby. Portable intraoperative AP spot film images of the upper abdomen obtained. Findings: Comparison: MRI abdomen 11/19/16 Contrast injected via a laparoscopic cannula within the cystic duct remnant opacifies nondilated cystic duct remnant, intrahepatic and extra hepatic bile ducts without obvious intraluminal filling defect. There is a mildly beaded appearance of the terminal aspect of the common bile duct. No intraluminal filling defects are demonstrated. There is eventual passage of contrast from the common bile duct into the duodenum. No extraluminal contrast extravasation. IMPRESSION: Nondilated bile ducts without evidence of intraluminal stone Mild mural irregularity terminal common bile duct, nonspecific, may represent residual irregularity from recently passed stone
[2016-11-22] MEDS: Docusate 100mg cap ORAL SCH (17:51)
--- NOTE | 2016-11-22 23:08 | Operative Note - Dictated ---
DATE OF OPERATION: 11/22/2016 PREOPERATIVE DIAGNOSES: 1. Acute cholecystitis. 2. Choledocholithiasis. POSTOPERATIVE DIAGNOSES: 1. Acute cholecystitis. 2. Choledocholithiasis. OPERATION PERFORMED: 1. Laparoscopic cholecystectomy. 2. Intraoperative cholangiogram. ATTENDING SURGEON: Ignacio Hart M.D. ASSISTING SURGEON: Nicholas Alves M.D. ANESTHESIOLOGIST: Devin Maya M.D. 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 ESTIMATED BLOOD LOSS: Minimal. IV FLUIDS: Please see anesthesia records. SPECIMENS: Gallbladder contents sent to pathology for review. DRAINS: None. COMPLICATIONS: None. WOUND CLASSIFICATION: Class II. ANTIBIOTICS: The patient was started on scheduled Zosyn 3.375. DISPOSITION: PACU. SUMMARY OF FINDINGS: 1. Cystic duct and artery where identified and circumferentially dissected out without complication. 2. Critical view was obtained prior to division. 3. Intraoperative cholangiogram was performed and the biliary tract was visualized with the cystic duct visualized with common duct of both right and left ducts visualized as well as good flow into the duodenum without obstruction. 4. Gallbladder removed without complications. OPERATIVE NOTE: The patient is a 36-year-old female, who presented to the [facility] complaining of right upper quadrant abdominal pain radiating to her back. Appropriate workup was done and identified the patient to have acute cholecystitis with choledocholithiasis. She came in initially with an elevated bilirubin, which significantly dropped to normal levels within the first 48 hours. Given these findings, it was believed that she had passed a stone and decision was made to proceed with laparoscopic cholecystectomy with intraoperative cholangiogram and possibly intraoperative laparoscopic common duct exploration. The surgery was indicated and recommended. The risks, benefits, alternatives, and rationale of surgery were explained in detail to the patient prior to entering the operating room. The patient expressed understanding and consented to surgery. The patient was taken to the operating room and placed on the operating table in supine position with bilateral arms out. All bony prominences were well padded with gel pads. SCDs were placed. Preoperative time-out was taken identifying the patient, procedure, operating staff, and surgical staff. Preoperatively, the patient was on intravenous Zosyn as scheduled for therapeutic treatment. General seizure was induced and the patient was intubated. A Garcia catheter was not inserted given the patient had voided immediately prior to entering the operating room. The abdomen was then prepped and draped in standard surgical fashion. An infraumbilical midline incision was made and carried down to the fascia. The fascia was elevated and divided exposing the peritoneal cavity. An open Tacos technique was used to enter the peritoneal cavity and the Tacos balloon tip catheter was inserted under direct visualization without complication. Pneumoperitoneum was established at 12 to 15 mmHg. The patient tolerated the insufflation well. The laparoscope was then inserted into the abdomen and the abdomen was inspected. No complications from initial trocar placement was noted. In examining the abdomen, no significant pathology was identified. The gallbladder was identified in the right upper quadrant. Subsequently, following ports were placed under direct visualization along with local anesthetic in the typical fashion. A 12 mm epigastric port and 25 mm ports along the right costal margin. The patient was then placed in a reverse Trendelenburg position with the right side up. Omental attachments to the gallbladder were gently swept away until the gallbladder could be grasped and placed superiorly over the dome of the liver. Dome adhesions between the gallbladder and omentum were lysed sharply. The infundibulum was then identified and subsequently retracted laterally towards the right lower quadrant using the midclavicular port grasper. This maneuver exposed closed triangle. The peritoneum overlying the gallbladder infundibulum was incised with electrocautery anteriorly. The posterior peritoneum was dissected. The triangle was then dissected to expose the cystic duct lymph node, cystic artery, cystic plate, and cystic duct itself. All of them are circumferentially dissected out and appropriate critical view was identified. Once these structures were carefully identified, we decided to proceed with intraoperative cholangiogram to ensure that the biliary tract is free of stones or other pathology. A clip was placed on the cystic duct close to the neck of the gallbladder. A ronit was made in the cystic duct and cholangiogram catheter was threaded. The cholangiogram was obtained and showed good flow of bile into the duodenum and intact biliary tree and absence of any filling defects. The cholangiogram catheter was then removed and the cystic duct was doubly clipped and divided. The cystic artery was then doubly clipped and divided. At this time, electrocautery was used to separate the peritoneal attachments to the gallbladder and liver bed. The gallbladder fossa and cystic artery were inspected to ensure no bleeding. Hemostasis was achieved with electrocautery. There was no leakage of bile from the cystic duct stump and the stump looked intact with surgical clips. The gallbladder was freed, was placed in the endoscopic retrieval bag, and easily removed from the abdomen through the epigastric port. The specimen was sent to pathology. At this time, a piece of Surgicel was placed in the gallbladder bed and all fluid was evacuated. At this time, we began the conclusion of our case. The secondary trocars were all removed under direct visualization. The fascia for the supraumbilical and epigastric ports were reapproximated with #0 Vicryl sutures in a [id number] fashion. All incisions were then closed using 4-0 Monocryl sutures in an interrupted subcuticular fashion. The operative field was cleaned and dried. The skin glue was applied. The patient tolerated the procedure well and was taken to the postanesthetic care unit in stable condition. Ignacio Hart M.D. DR: SULEMA JOB#: [id number] CC: MARLENY
[2016-11-23] VITALS: BP 99/66
[2016-11-23] MEDS: Morphine Sulfate 2mg/ml Inj IVP PRN ×3 (00:21→10:38)
[2016-11-23 04:00] VITALS: BP 104/68
[2016-11-23 06:33] LABS: BASOPHILS % (AUTO) 1.3 % (0.0-2.0); EOSINOPHILS % (AUTO) 1.7 % (0.0-3.0); LYMPHOCYTES % (AUTO) 31.6 % (20.0-45.0); MEAN CORPUSCULAR HEMOGLOBIN 30.7 PG (27.0-31.0); MEAN CORPUSCULAR HGB CONC 33.3 G/DL (32.0-36.0); MEAN CORPUSCULAR VOLUME 92 FL (80-99); MEAN PLATELET VOLUME 7.4 FL (6.5-10.1); MONOCYTES % (AUTO) 9.6 % (1.0-10.0); NEUTROPHILS % (AUTO) 55.8 % (45.0-75.0); PLATELET COUNT 244 K/UL (150-450); RED BLOOD COUNT 3.76 M/UL (4.20-5.40); RED CELL DISTRIBUTION WIDTH 11.4 % (11.6-14.8); WHITE BLOOD COUNT 6.4 K/UL (4.8-10.8)
[2016-11-23 07:05] LABS: ALANINE AMINOTRANSFERASE 110 U/L (3-33); ALBUMIN/GLOBULIN RATIO 1.5 (1.0-2.7); ANION GAP 12 (5-15); ASPARTATE AMINO TRANSFERASE 60 U/L (5-40); CALCIUM 9.1 mg/dL (8.6-10.2); CARBON DIOXIDE 28 mEQ/L (20-30); CHLORIDE 100 mEQ/L (98-107); GLOMERULAR FILTRATION RATE > 60 mL/min (>60); HEMOLYSIS 6; POTASSIUM 4.2 mEQ/L (3.4-4.9); SODIUM 140 mEQ/L (135-145); TOTAL PROTEIN 5.8 g/dL (6.6-8.7)
[2016-11-23 08:01] VITALS: BP 99/55
--- NOTE | 2016-11-23 09:06 | 48 Hour Post Anesthesia Eval ---
Post Anesthesia Evaluation Procedure: Laparoscopic cholecystectomy with intraoperative cholangiogram Date of Evaluation: Nov 23, 2016 Time of Evaluation: 09:15 Blood Pressure Systolic: 99 0: 55 Pulse Rate: 75 Respiratory Rate: 19 Temperature (Fahrenheit): 97.7 O2 Sat by Pulse Oximetry: 97 Airway: patent Nausea: No Vomiting: No If pain is > 6 Comment: 4 Hydration Status: adequate Cardiopulmonary Status: Stable Mental Status/LOC: patient returned to baseline Follow-up Care/Observations: As per surgery Post-Anesthesia Complications: No anesthetic complication Follow-up care needed: N/A WINSOME ULLOA M.D. Nov 23, 2016 09:05
[2016-11-23] MEDS: BuPROPion 75mg Tab ORAL SCH (09:51)
[2016-11-23] MEDS: Docusate 100mg cap ORAL SCH (09:51)
[2016-11-23] MEDS: Heparin 5000 units/ml inj SUBQ SCH (09:54)
--- NOTE | 2016-11-23 10:51 | GI Progress Note ---
Assessment/Plan Problems: (1) Elevated liver function tests ICD Codes: R94.5 - Abnormal results of liver function studies SNOMED: 117007122 (2) Acute cholecystitis ICD Codes: K81.0 - Acute cholecystitis SNOMED: 25178020 (3) Vomiting ICD Codes: R11.10 - Vomiting, unspecified SNOMED: 148544930 Qualifiers: Qualified Codes: R11.2 - Nausea with vomiting, unspecified (4) Dehydration ICD Codes: E86.0 - Dehydration SNOMED: 54387641 (5) Nausea & vomiting ICD Codes: R11.2 - Nausea with vomiting, unspecified SNOMED: 59767382 (6) RUQ abdominal pain ICD Codes: R10.11 - Right upper quadrant pain SNOMED: 635552011 (7) Choledocholithiasis ICD Codes: K80.50 - Calculus of bile duct without cholangitis or cholecystitis without obstruction SNOMED: 867196126 (8) Hypothyroidism ICD Codes: E03.9 - Hypothyroidism, unspecified SNOMED: 49119877 Status: stable, progressing Status Narrative Discussed with Dr. Solomon. Assessment/Plan s/p lap mitchel defer ERCP, patient will not need diet per surgery >> adv as tolerated abx H2 monitor LFTs, downtrending fu labs Subjective Gastrointestinal/Abdominal: Reports: abdominal pain - improving Objective Last 24 Hour Vital Signs Date Time Temp Pulse Resp B/P Pulse Ox O2 Delivery O2 Flow Rate FiO2 11/23/16 09:05 75 19 97 11/23/16 08:01 97.7 75 19 99/55 97 Room Air 11/23/16 06:07 98.1 11/23/16 04:00 97.9 58 18 104/68 96 Room Air 11/23/16 00:00 97.9 65 18 99/66 96 Room Air 11/22/16 20:00 98.1 61 18 111/66 96 Room Air 11/22/16 16:00 97.7 60 18 116/74 97 Room Air 11/22/16 14:45 62 18 110/70 99 Room Air 11/22/16 13:30 97.8 11/22/16 13:15 74 12 102/69 99 Nasal Cannula 3.0 11/22/16 13:00 62 19 105/62 99 Nasal Cannula 3.0 11/22/16 12:45 69 11 99/67 99 Nasal Cannula 3.0 11/22/16 12:43 97.8 11/22/16 12:30 67 12 114/66 100 Nasal Cannula 3.0 11/22/16 12:15 69 17 119/78 100 Nasal Cannula 3.0 11/22/16 12:00 74 14 115/72 100 Nasal Cannula 3.0 11/22/16 11:50 85 22 119/78 100 Nasal Cannula 3.0 11/22/16 11:46 102 22 99 11/22/16 11:40 100 27 148/91 100 Simple Mask 6.0 11/22/16 11:36 97.9 89 17 121/81 100 Simple Mask 6.0 Intake and Output 11/22/16 11/23/16 19:00 07:00 Intake Total 1355.0 ml 745.0 ml Output Total 10 ml Balance 1345.0 ml 745.0 ml Intake Oral 580 ml IV Total 1355.0 ml 165.0 ml Estimated Blood Loss 10 ml # Voids 5 Laboratory Tests Test 11/23/16 05:25 White Blood Count 6.4 K/UL (4.8-10.8) Red Blood Count 3.76 M/UL (4.20-5.40) L Hemoglobin 11.5 G/DL (12.0-16.0) L Hematocrit 34.7 % (37.0-47.0) L Mean Corpuscular Volume 92 FL (80-99) Mean Corpuscular Hemoglobin 30.7 PG (27.0-31.0) Mean Corpuscular Hemoglobin Concent 33.3 G/DL (32.0-36.0) Red Cell Distribution Width 11.4 % (11.6-14.8) L Platelet Count 244 K/UL (150-450) Mean Platelet Volume 7.4 FL (6.5-10.1) Neutrophils (%) (Auto) 55.8 % (45.0-75.0) Lymphocytes (%) (Auto) 31.6 % (20.0-45.0) Monocytes (%) (Auto) 9.6 % (1.0-10.0) Eosinophils (%) (Auto) 1.7 % (0.0-3.0) Basophils (%) (Auto) 1.3 % (0.0-2.0) Sodium Level 140 mEQ/L (135-145) Potassium Level 4.2 mEQ/L (3.4-4.9) Chloride Level 100 mEQ/L (98-107) Carbon Dioxide Level 28 mEQ/L (20-30) Anion Gap 12 (5-15) Blood Urea Nitrogen 7 mg/dL (7-23) Creatinine 1.0 mg/dL (0.5-0.9) H Estimat Glomerular Filtration Rate > 60 mL/min (>60) Glucose Level 93 mg/dL (74-106) Calcium Level 9.1 mg/dL (8.6-10.2) Total Bilirubin 0.6 mg/dL (0.0-1.2) Aspartate Amino Transf (AST/SGOT) 60 U/L (5-40) H Alanine Aminotransferase (ALT/SGPT) 110 U/L (3-33) H Alkaline Phosphatase 108 U/L (35-104) H Total Protein 5.8 g/dL (6.6-8.7) L Albumin 3.5 g/dL (3.5-5.2) Globulin 2.3 g/dL Albumin/Globulin Ratio 1.5 (1.0-2.7) Height (Feet): 5 Height (Inches): 4.00 Weight (Pounds): 165 General Appearance: no apparent distress, alert Cardiovascular: normal rate Respiratory/Chest: normal breath sounds, no respiratory distress Abdominal Exam: normal bowel sounds, non tender, soft Extremities: normal range of motion Jaimee Dumont N.P. Nov 23, 2016 10:51
[2016-11-23 12:00] VITALS: BP 107/71
--- NOTE | 2016-11-23 13:26 | General Progress Note ---
Progress Note Progress Note Surgery Patient seen and examined. doing well. pain as anticipated given recent surgery. no n/v/f/c. tolerating liquids. incisions c/d/i. advance diet. okay to d/c from surgical standpoint. follow up in 1-2 weeks. instructions given to patient at bedside. Ignacio Hart Nov 23, 2016 13:26
--- NOTE | 2016-11-23 14:54 | Discharge Summary ---
Discharge Summary Hospital Course Date of Admission Nov 18, 2016 at 19:35 Date of Discharge Admitting Diagnosis acute cholecystitis TYRON Martel is a 36 year old female who was admitted on Nov 18, 2016 at 19: 35 for Acute Cholecystitis Hospital Course The patient was seen and examined at bedside and all new and available data was reviewed in the patients chart. Last 24 Hour Vital Signs Date Time Temp Pulse Resp B/P Pulse Ox O2 Delivery O2 Flow Rate FiO2 11/23/16 12:00 97.7 67 18 107/71 94 Room Air 11/23/16 09:05 75 19 97 11/23/16 08:01 97.7 75 19 99/55 97 Room Air 11/23/16 06:07 98.1 11/23/16 04:00 97.9 58 18 104/68 96 Room Air 11/23/16 00:00 97.9 65 18 99/66 96 Room Air 11/22/16 20:00 98.1 61 18 111/66 96 Room Air 11/22/16 16:00 97.7 60 18 116/74 97 Room Air General Appearance: awake, alert, responsive EENT: PERRL/EOMI, normal ENT inspection Neck: non-tender, normal alignment, supple Cardiovascular: normal peripheral pulses, normal rate, regular rhythm, no gallop/murmur, no JVD Respiratory/Chest: chest wall non-tender, lungs clear, normal breath sounds, no respiratory distress, no accessory muscle use Abdomen: normal bowel sounds, less tender, soft, no organomegaly, no mass Extremities: normal range of motion, non-tender 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 (Patient was seen earlier today. Signature timestamp does not reflect patient encounter time) Song Patterson MD Discharge Discharge Disposition Patient was discharged to Discharge Diagnoses: Song Patterson MD Nov 23, 2016 14:54
--- NOTE | 2016-11-23 19:19 | Internal Med Progress Note ---
Subjective Date of Service: Nov 23, 2016 Physician Name Jason Merrill Attending Physician Song Patterson MD Current Medications Medications (Trade) Dose Ordered Sig/Edy Route PRN Reason Start Time Stop Time Status Last Admin Dose Admin Acetaminophen (Tylenol) 650 mg Q4H PRN ORAL T>100.5 11/18/16 22:00 12/18/16 21:59 11/19/16 08:20 Acetaminophen/ Hydrocodone Bitart ([place] 10/325) 1 ea Q4H PRN ORAL Severe Pain (Pain Scale 7-10) 11/22/16 11:45 11/29/16 11:44 11/23/16 15:03 Acetaminophen/ Hydrocodone Bitart ([place] 5/325) 1 tab Q4H PRN ORAL Moderate Pain (Pain Scale 4-6) 11/22/16 11:45 11/29/16 11:44 Al Hydroxide/Mg Hydroxide (Mylanta II) 30 ml Q6H PRN ORAL dyspepsia 11/18/16 22:00 12/18/16 21:59 Bupropion HCl (Wellbutrin) 75 mg BID ORAL 11/19/16 09:00 12/19/16 08:59 11/23/16 09:51 Dextrose (Dextrose 50%) STAT PRN IV Hypoglycemia 11/18/16 22:00 12/18/16 21:59 Diphenhydramine HCl (Benadryl) 25 mg Q6H PRN ORAL Itching/Pruritis 11/18/16 22:00 12/18/16 21:59 Docusate Sodium (Colace) 100 mg TWICE A DAY ORAL 11/22/16 18:00 12/22/16 17:59 11/23/16 09:51 Heparin Sodium (Porcine) (Heparin 5000 units/ml) 5,000 units EVERY 12 HOURS SUBQ 11/19/16 09:00 12/19/16 08:59 11/23/16 09:54 Ketorolac Tromethamine (Toradol 30mg) 30 mg Q6H PRN IV Breakthrough Pain 11/22/16 12:00 11/27/16 11:59 11/22/16 16:10 Levothyroxine Sodium (Synthroid) 75 mcg ACBREAKFAST ORAL 11/19/16 06:30 12/19/16 06:29 11/23/16 05:34 Morphine Sulfate (Morphine Sulfate) 2 mg Q4H PRN IVP Severe Pain (Pain Scale 7-10) 11/18/16 22:00 11/25/16 21:59 11/23/16 10:38 Nitroglycerin (Ntg) 0.4 mg Q5MIN X 3 DOSES PRN SL Prn Chest Pain 11/18/16 22:15 12/18/16 22:14 Ondansetron HCl (Zofran) 4 mg Q6H PRN IVP Nausea & Vomiting 11/22/16 11:45 12/22/16 11:44 Polyethylene Glycol (Miralax) 17 gm HSPRN PRN ORAL Constipation 11/18/16 22:00 12/18/16 21:59 Temazepam (Restoril) 15 mg HSPRN PRN ORAL Insomnia 11/18/16 22:00 11/25/16 21:59 Allergies: Coded Allergies: SULFA (SULFONAMIDE ANTIBIOTICS) (Unverified Allergy, Unknown, 11/18/16) Uncoded Allergies: SULFA (Allergy, Unknown, Hives, 11/18/16) ROS Limited/Unobtainable: No Constitutional: Reports: no symptoms HEENT: Reports: no symptoms Cardiovascular: Reports: no symptoms Respiratory: Reports: no symptoms Gastrointestinal/Abdominal: Reports: abdominal pain Genitourinary: Reports: no symptoms Neurologic/Psychiatric: Reports: no symptoms Subjective 36 YO F admitted with nausea, vomiting and abdominal pain. Now Cholecystitis. S/P Laparoscopic cholecystectomy 11/22/16. Cover for [facility] Rick-Dr Patterson. Tolerating full liquid diet. Await discharge home today Objective Last Vital Signs Date Time Temp Pulse Resp B/P Pulse Ox O2 Delivery O2 Flow Rate FiO2 11/23/16 12:00 97.7 67 18 107/71 94 Room Air 11/22/16 13:15 3.0 Laboratory Tests Test 11/23/16 05:25 White Blood Count 6.4 K/UL (4.8-10.8) Red Blood Count 3.76 M/UL (4.20-5.40) L Hemoglobin 11.5 G/DL (12.0-16.0) L Hematocrit 34.7 % (37.0-47.0) L Mean Corpuscular Volume 92 FL (80-99) Mean Corpuscular Hemoglobin 30.7 PG (27.0-31.0) Mean Corpuscular Hemoglobin Concent 33.3 G/DL (32.0-36.0) Red Cell Distribution Width 11.4 % (11.6-14.8) L Platelet Count 244 K/UL (150-450) Mean Platelet Volume 7.4 FL (6.5-10.1) Neutrophils (%) (Auto) 55.8 % (45.0-75.0) Lymphocytes (%) (Auto) 31.6 % (20.0-45.0) Monocytes (%) (Auto) 9.6 % (1.0-10.0) Eosinophils (%) (Auto) 1.7 % (0.0-3.0) Basophils (%) (Auto) 1.3 % (0.0-2.0) Sodium Level 140 mEQ/L (135-145) Potassium Level 4.2 mEQ/L (3.4-4.9) Chloride Level 100 mEQ/L (98-107) Carbon Dioxide Level 28 mEQ/L (20-30) Anion Gap 12 (5-15) Blood Urea Nitrogen 7 mg/dL (7-23) Creatinine 1.0 mg/dL (0.5-0.9) H Estimat Glomerular Filtration Rate > 60 mL/min (>60) Glucose Level 93 mg/dL (74-106) Calcium Level 9.1 mg/dL (8.6-10.2) Total Bilirubin 0.6 mg/dL (0.0-1.2) Aspartate Amino Transf (AST/SGOT) 60 U/L (5-40) H Alanine Aminotransferase (ALT/SGPT) 110 U/L (3-33) H Alkaline Phosphatase 108 U/L (35-104) H Total Protein 5.8 g/dL (6.6-8.7) L Albumin 3.5 g/dL (3.5-5.2) Globulin 2.3 g/dL Albumin/Globulin Ratio 1.5 (1.0-2.7) Intake and Output 11/22/16 11/23/16 19:00 07:00 Intake Total 1355.0 ml 745.0 ml Output Total 10 ml Balance 1345.0 ml 745.0 ml Intake Oral 580 ml IV Total 1355.0 ml 165.0 ml Estimated Blood Loss 10 ml # Voids 5 Objective General Appearance: WD/WN, no apparent distress, alert EENT: PERRL/EOMI, normal ENT inspection, TMs normal Neck: non-tender, normal alignment, supple, normal inspection Cardiovascular: normal peripheral pulses, normal rate, regular rhythm, no gallop/murmur, no JVD Respiratory/Chest: chest wall non-tender, lungs clear, normal breath sounds, no respiratory distress, no accessory muscle use Abdomen: no mass, decreased bowel sounds, distended, guarding, tender Extremities: normal range of motion 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 (4) Major depression (5) Choledocholithiasis Assessment & Plan: See GI note. S/P laparoscopic cholecystectomy Tuesday, Nov 22, 2016-See surgery note. (6) Acute cholecystitis Assessment & Plan: See surgery note. (7) Hypothyroidism Assessment & Plan: Cont levoxyl Status: stable Assessment/Plan D/C home today. F/U surgery 1-2 weeks JASON MERRILL Nov 23, 2016 19:19
== END 2016-11-23 17:04 | disposition home or self-care (01) | DRG 419 ==
LOC: ENRESERVDT → ENRESERVTM → EMR 17:40 → 4W 19:35 → EDBEDREQ 19:58
DX: K80.00 Calculus of gallbladder with acute cholecystitis without obstruction (principal); F32.9 Major depressive disorder, single episode, unspecified; E03.9 Hypothyroidism, unspecified; Z88.2 Allergy status to sulfonamides
CPT/HCPCS: 36415; 74177; 74181; 74300; 76000; 76700; 80053; 81003; 81025; 82150; 82248; 83690; 85025; 85610; 85730; 86850; 86900; 86901; 94003; 94150; J2250; J2405; J2710